=== PATIENT | female | born 1965 | race Caucasian/White ===

== ENCOUNTER 2016-09-11 09:32 | Emergency (ER) | payer MEDICAID ==
[~2016-09-11] VITALS: Ht 167.6 cm; Wt 54.4 kg
[~2016-09-11 09:32] MED LIST: BUPROPION HCL75 M1 PO; CENTRUM SILVER1 TAB PO; CLINDAMYCIN300 MG PO; HYDROCODONE1 TABLET PO; MELOXICAM15 MG PO; MOBIC7.5 MG PO; MULTI VITAMINS1 TA1 PO; NORCO 325 MG-51 TAB PO; TIZANIDINE HCL 44 MG NG; VICODIN 5/500 T1 TAB PO; VITAMIN D31000 IU PO; WELLBUTRIN 75MG75 MG PO
--- OUTSIDE RECORDS SUMMARY | 2016-09-11 09:47 | External Medical Summary Rpt ---
Author Author , Organization [employer] Address Unknown Phone Unavailable Care Team Providers Care Sweat Band Separator Name Role Phone MICHAEL SOLOMON MD, PSC, Unavailable Unavailable MICHAEL SOLOMON MD, PSC TRISTIN GOULD, BRYANNA, Unavailable Unavailable DARRIAN RUSSO Unavailable Unavailable AMANDA ALL, AMANDA ALL Unavailable Unavailable TYSON FLATLOCK SEWING MACHINE OPERATOR, TYSON Unavailable Unavailable FLATLOCK SEWING MACHINE OPERATOR DYLLAN MOCK, Unavailable Unavailable [facility]LLAN [facility], Unavailable [facility]available [facility] JIMY EMRE, Unavailable Unavailable JIMY EMRE JR STEPHEN RICARDO, Unavailable Unavailable JR STEPHEN RICARDO BRANDON, LYRIC Unavailable Unavailable [facility] Unavailable Unavailable INC, [facility], Unavailable Unavailable [facility] Unavailable Unavailable IMAGING ASS, [facility] Unavailable [facility]available [facility], Unavailable Unavailable PLLC, [facility] PETTEY JAM, PETTEY Unavailable Unavailable LISA NICOLAS, Unavailable Unavailable ZANDRA DUENAS JR Unavailable Unavailable [id number], Unavailable Unavailable [id number] Unavailable Unavailable EMERGENCY PH[facility], [facility], [facility] Unavailable Unavailable COM INC WEHRONDINA III IVETH, Unavailable Unavailable WEHRMAN III IVETH Purpose Continuity of Care Document - 06-20-2007 through 2016 Problems Code Diagnosis DOS Provider Status [id number] INSECT BITE 11-23-2015 [facility] NONVENOMOUS PLLC RT HAND INITIAL ENC M1711 UNILATERAL 03-28-[address] [facility] PRIMARY PHYSICIANS, [facility]STE[facility]ARTHRI PLLC TIS RIGHT KNEE F52385 EFFUSION 03-28-2015 [place] [facility] J14651 PAIN IN 03-28-2015 [place] [facility] M170 BILATERAL 02-18-2015 [facility] HOSP OSTEOARTHRI INC TIS OF KNEE 66929 OSTEOARTHRO 01-17-2015 RANJANA CURRY UNSPEC , PSC WHETHER GEN/LOC LOWER LEG 33414 UNSPECIFIED 01-17-2015 [facility]P ARTHROPATHY INC , LOWER LEG 54493 PAIN IN 12-16-2014 [place] LOWER LEG INC 6826 CELLULITIS 12-07-2014 [facility] AND ABSCESS PHYSICIANS, OF LEG PLL EXCEPT FOOT 8940 MX&UNSPEC 12-07-2014 [place] OPEN WOUND MEDICAL LOW LIMB IMAGING ASS W/O MENTION COMP 8799 OPEN WOUND 11-26-2014 [facility] [facility] UNSPECIFIED INC SITE COMPLICATED 9597 INJURY 11-19-2014 [facility] OTHER&UNSPE PHYSICIANS, CIFIED KNEE PLL LEG ANKLE&FOOT V7231 ROUTINE 11-04-2014 [facility] AL EXAMINATION V7641 SCREENING 11-04-2014 [facility] MALIGNANT GROUP NEOPLASM OF THE RECTUM 7295 PAIN IN 09-07-2014 [place] SOFT MEDICAL TISSUES OF IMAGING ASS LIMB V7612 OTHER 08-14-2014 [place] SCREENING MEDICAL MAMMOGRAM IMAGING ASS 94619 OVERWEIGHT 07-09-2014 [facility]OSP INC 4739 UNSPECIFIED 05-17-2014 [facility] SINUSITIS PHYSICIANS GROUP 21387 OLD 10-19-2013 [facility] DISRUPTION PHYSICIANS OF GROUP POSTERIOR CRUCIATE LIGAMENT 81467 CONTUSION 09-05-2013 [facility] OF KNEE PHYSICIANS GROUP 8449 SPRAIN&STRA 08-18-2013 [facility] N EMERGENCY UNSPECIFIED PHYSI SITE OF KNEE&LEG E8888 OTHER FALL 08-18-2013 [facility] PH[facility]SI E8889 UNSPECIFIED 08-18-2013 [place] FALL [facility]ICAL IM[facility] V251 ENCOUNTER 07-13-2007 W[facility]'S INSERT/[facility] IU CLINIC OF [place]PTI [place] VE DEVICE [facility] V2509 OTH GENERAL 06-20-2007 [facility] HE[facility] CNSL&ADVICE CLINIC OF CONTRACEPT [place] MANAGEMENT [facility] V2549 SURVEILLANC 06-20-2007 WOMEN'S E OTH PREV HEALTH PRSC CLINIC OF CONTRACEPT [place] METHOD [facility] Medications Na ND Rx Da Fi Fi Am Da Di Ph RX Ph St me C No te ll ll ou ys ag ar # ys at rm s nt no ma ic us Or Da si cy ia de te s n re d 00 03 04 00 12 2 RI 72 No Ac 40 -0 -0 .0 TE 26 t ti 60 3- 7- 00 54 Av ve 35 20 20 AI ai 90 08 08 D la 1 PH bl AR e M #3 93 8 NJ 50 02 04 00 1. 1 TH 20 No Ac RE 41 -2 -0 00 ER 27 t ti NA 90 9- 7- 0 A 85 Av ve 42 20 20 CO 9 ai SY 10 [address] 1 IN bl EM C e ME 59 02 03 00 1. 90 CL [address] 76 -1 -2 00 IN 51 t ti OX 24 9- 6- 0 IC 76 Av ve YP 53 20 20 ai RO 70 08 08 PH la GE [address] MA e ER CY ON E 15 0 MG /M L Procedures Procedure DOS Code Location Performer Comment RADIOLOGI 89520 [place] VASILIY ALL C 5 MEDICAL EXAMINATI IMAGING ON KNEE 3 ASS VIEWS INJECTION J1030 [facility] METHYLPRE INC INC DNISOLONE ACETATE 40 MG ARTHROCEN 80907 [facility] TESIS 5 [facility] ASPIR&/IN INC INC J MAJOR JT/BURSA W/O US FLUOR 09717 MICHAEL MICHAEL NEEDLE/CA 5 MD NEHA, MD NEHA, [facility] PSC SPINE/PAR ASPINAL DX/THER ADDON RADIOLOGI 74483 [place] AMANDA ALL C 5 MEDICAL EXAMINATI IMAGING ON TIBIA ASS & FIBULA 2 VIEWS SUSCEPTIB 30356 [facility] LTY STDY 5 [facility] ANTIMICRB INC INC IAL MICRO/AGA R DILUTJ CUL BACT 79415 [facility] XCPT 5 [facility] URINE INC INC BLOOD/STO OL AEROBIC ISOL CUL BACT 82771 [facility] AEROBIC 5 [facility] ADDL INC INC METHS DEFINITIV E EA ISOL CYTP C/V 92269 [facility] PICKLESIM AUTO THIN 5 LLC ER JR FIDENCIO LYR PREPJ SCR MNL RESCR PHYS BLOOD 21995 [facility] L[facility]IC OCCULT 5 PHYSICIAN BRANDON PEROXIDAS S GROUP E ACTV QUAL FECES 1-3 SPEC DUP-SCAN 07365 [place] JIMY XTR VEINS 5 MEDICAL EMRE IMAGING UNILATERA ASS L/LIMITED STUDY SCREENING G0202 [facility]OS[facility] MAMMOGRAP INC INC HY ALBER INCL CAD WHEN PERFORMD COMPUTER- 08650 [facility] AIDED [facility] DETECTION INC INC SCREENING MAMMOGRAP HY GENERAL 05183 [facility]OS[facility] PANEL INC INC SEDIMENTA 22962 [facility] DICKERSON TION RATE 5 [facility] RBC INC INC NON-AUTOM ATED HEMOGLOBI 44005 [facility] DICKERSON N 5 [facility] MEM HOSP GLYCOSYLA INC INC RAJAN A1C CYANOCOBA 76826 [facility] KAT 5 [facility] MEM HOS[facility] VITAMIN INC INC B-12 GONADOTRO 58249 [facility] PIN 5 [facility] [place] [address] [facility] DICKERSON MAGNESIUM 5 [facility] MEM HOSP INC INC GONADOTRO 89722 T[facility] PIN 5 MEM [facility]OSP FOLLICLE INC [place] [address] [facility] THYROXINE 5 [facility] MEM [facility]OS[facility] TOTAL INC INC RADIOLOGI 57011 [place] JIMY C EXAM 4 MEDICAL EMRE KNEE IMAGING COMPLETE ASS 4/MORE VIEWS URINE 31608 [facility], 8 [facility] TEST CLINIC OF VISUAL COLOR [place] CMPN [facility] METHS INSERTION [address] INTRAUTER CLINIC OF INE DEVICE [place] IUD [facility] URINE 23763 W[facility]'S MOCK, 8 [facility] TEST CLINIC OF VISUAL COLOR [place] [facility] METHS Encounters Encounter Start End Date Code Location Performer Type Date EMERGENCY 45756 YARITZA DE PAZ 6 6 PHYSICIAN KEVIN Palomo [facility] T VISIT MODERATE SEVERITY EMERGENCY 26452 YARITZA RICARDO 5 5 PHYSICIAN JR STEPHEN Palomo [facility] T VISIT MODERATE SEVERITY [facility] OUTPATIEN INC T OFFICE 38339 [facility] T VISIT INC 10 MINUTES [facility] OUTPATIEN INC [facility] OUTPATIEN INC OFFICE 57417 [facility] 5 5 [facility] T VISIT INC 10 MINUTES EMERGENCY 34035 YARITZA MEHTA 5 5 PHYSICIAN LEATHA GUAMAN S, [facility] T VISIT HIGH/URGE NT SEVERITY HOSPITAL [facility] - 5 5 [facility] OUTPATIEN INC EMERGENCY 19391 YARIT[facility] Venegas 5 5 PHYSICIAN DENIZ Palomo [facility] T VISIT MODERATE SEVERITY PERIODIC 88391 [facility] LYRIC PREVENTIV 5 5 PHYSICIAN BRANDON E MED EST S GROUP PATIENT 40-[address]YRS [facility] - 5 5 [facility] OUTPATIEN INC [facility] - 5 5 [facility] OUTPATIEN INC [facility] 5 [facility] OUTPATIEN INC OFFICE 45736 [facility] LYRIC OUTPATIEN 5 5 PHYSICIAN BRANDON T VISIT S GROUP 15 MINUTES OFFICE 59019 [facility] LYRIC OUTPATIEN 4 4 PHYSICIAN BRANDON T VISIT S GROUP 10 MINUTES OFFICE 12339 [facility] LYRIC OUTPATIEN 4 4 PHYSICIAN BRANDON T VISIT S GROUP 10 MINUTES OFFICE 24229 [facility] PETTEY OUTPATIEN 4 4 PHYSICIAN JAM T VISIT S GROUP 15 MINUTES OFFICE 69948 [facility] LYRIC OUTPATIEN 4 4 PHYSICIAN BRANDON T VISIT S GROUP 10 MINUTES OFFICE 00415 [facility] PETTEY OUTPATIEN 4 4 PHYSICIAN JAM T VISIT S GROUP 15 MINUTES OFFICE 29967 [facility] PETTEY OUTPATIEN 4 4 PHYSICIAN JAM T VISIT S GROUP 25 MINUTES OFFICE 94833 [facility] LYRIC QUINTERO 4 4 PHYSICIAN BRANDON T NEW 20 S GROUP MINUTES EMERGENCY 35997 [facility] 4 4 DOMINIQUE III [facility] EMERGENCY T VISIT PHYSI MODERATE SEVERITY OFFICE 15862 WOMEN'S INGRID MOCK 8 8 [facility] T VISIT CLINIC OF 15 MINUTES [facility]
--- OUTSIDE RECORDS SUMMARY | 2016-09-11 09:47 | External Medical Summary Rpt ---
Author Author , Organization [employer] Address Unknown Phone Unavailable Care Team Providers Care Scarfing Machine Operator Name Role Phone MICHAEL SOLOMON MD, PSC, Unavailable Unavailable MICHAEL SOLOMON MD, PSC TRISTIN GOULD, BRYANNA, Unavailable Unavailable DARRIAN RUSSO Unavailable Unavailable AMANDA ALL, AMANDA ALL Unavailable Unavailable TYSON JOB SETTER, TYSON Unavailable Unavailable JOB SETTER DYLLAN MOCK, Unavailable Unavailable [facility], Unavailable [facility]available [facility] JIMY EMRE, Unavailable Unavailable JIMY EMRE JR STEPHEN RICARDO, Unavailable Unavailable JR STEPHEN RICARDO BRANDON, LYRIC Unavailable Unavailable [facility] Unavailable Unavailable INC, [facility] Unavailable Unavailable [facility] Unavailable Unavailable IMAGING ASS, [facility] Unavailable [facility]available [facility], Unavailable Unavailable PLLC, [facility] PETTEY JAM, PETTEY Unavailable Unavailable LISA NICOLAS, Unavailable Unavailable ZANDRA DUENAS JR Unavailable Unavailable [id number], Unavailable Unavailable [id number] Unavailable Unavailable EMER[facility]Y [facility], [facility], [facility]ERA Unavailable Unavailable COM INC WEHRONDINA III IVETH, Unavailable Unavailable WEHRMAN III IVETH Purpose Continuity of Care Document - 06-20-2007 through 2016 Problems Code Diagnosis DOS Provider Status [id number] INSECT BITE 11-23-2015 [facility], NONVENOMOUS PLLC RT HAND INITIAL ENC M1711 UNILATERAL 03-28-2015 [facility] PRIMARY PHYSICIANS, [facility] PLLC TIS RIGHT KNEE F87232 EFFUSION 03-28-2015 [place] [facility] C47948 PAIN IN 03-28-2015 [place] RIGHT [facility] M170 BILATERAL 02-18-2015 [facility] OSTEOARTHRI INC TIS OF KNEE 60428 OSTEOARTHRO 01-17-2015 RANJANA CURRY UNSPEC , PSC WHETHER GEN/LOC LOWER LEG 83104 UNSPECIFIED 01-17-2015 [facility] HOSP ARTHROPATHY INC , LOWER LEG 05005 PAIN IN 12-16-2014 [place] LOWER LEG INC 6826 CELLULITIS 12-07-2014 [facility] AND ABSCESS PHYSICIANS, OF LEG PLL EXCEPT FOOT 8940 MX&UNSPEC 12-07-2014 [place] OPEN WOUND MEDICAL LOW LIMB IMAGING ASS W/O MENTION COMP 8799 OPEN WOUND 11-26-2014 [place] [facility] UNSPECIFIED INC SITE COMPLICATED 9597 INJURY 11-19-2014 [facility] OTHER&UNSPE PHYSICIANS, CIFIED KNEE PLL LEG ANKLE&FOOT V7231 ROUTINE 11-04-2014 [facility] AL EXAMINATION V7641 SCREENING 11-04-2014 [facility] FOR [facility]ANS MALIGNANT GROUP NEOPLASM OF THE RECTUM 7295 PAIN IN 09-07-2014 [place] SOFT MEDICAL TISSUES OF IMAGING ASS LIMB V7612 OTHER 08-14-2014 [place] SCREENING MEDICAL MAMMOGRAM IMAGING ASS 57945 OVERWEIGHT 07-09-2014 [facility] HOSP INC 4739 UNSPECIFIED 05-17-2014 [facility] SINUSITIS PHYSICIANS GROUP 54863 OLD 10-19-2013 [facility] DISRUPTION PHYSICIANS OF GROUP POSTERIOR CRUCIATE LIGAMENT 05433 CONTUSION 09-05-2013 [facility] OF KNEE PHYSICIANS GROUP 8449 SPRAIN&STRA 08-18-2013 [facility] OF N EMERGENCY UNSPECIFIED PHYSI SITE OF KNEE&LEG E8888 OTHER FALL 08-18-2013 [facility] EM[facility]GENC[facility] PHYSI E8889 UNSPECIFIED 08-18-2013 [place] [facility] V251 ENCOUNTER 07-13-2007 WOMEN'S INSERT/[facility] IU CLIN[facility] OF [facility]PTI [place] VE DEVICE [facility] V2509 OTH GENERAL 06-20-2007 WOMEN'S HE[facility] CNSL&ADVICE CLINIC OF CONTRACEPT [place] MANAGEMENT [facility] V2549 SURVEILLANC 06-20-2007 WOMEN'S E OTH PREV HEALTH PRSC CLINIC OF CONTRACEPT [place] METHOD [facility] Medications Na ND Rx Da Fi Fi [...] bl AR e M #3 93 8 AR 50 02 04 00 1. 1 TH [...] Procedure DOS Code Location Performer Comment RADIOLOGI 26488 [place] VASILIY ALL C 5 MEDICAL EXAMINATI IMAGING ON KNEE 3 ASS VIEWS INJECTION J1030 [facility] METHYLPRE INC INC DNISOLONE ACETATE 40 MG ARTHROCEN 49330 [facility] TESIS 5 [facility] ASPIR&/IN INC INC J MAJOR JT/BURSA W/O US FLUOR 54270 MICHAEL MICHAEL NEEDLE/CA 5 MD NEHA, MD NEHA, [facility] PSC SPINE/PAR ASPINAL DX/THER ADDON RADIOLOGI 98332 [place] AAMNDA ALL C 5 MEDICAL EXAMINATI IMAGING ON TIBIA ASS & FIBULA 2 VIEWS SUSCEPTIB 39993 [facility] LTY STDY 5 [facility] ANTIMICRB INC INC IAL MICRO/AGA R DILUTJ CUL BACT 87637 [facility] XCPT 5 [facility] URINE INC INC BLOOD/STO OL AEROBIC ISOL CUL BACT 62288 [facility] AEROBIC 5 [facility] ADDL INC INC METHS DEFINITIV E EA ISOL CYTP C/V 79098 [facility] PICKLES[facility] AUTO THIN 5 LLC ER JR FIDENCIO LYR PREPJ SCR MNL RESCR PHYS BLOOD 91113 [facility] LYRIC OCCULT 5 PHYSICIAN BRANDON PEROXIDAS S GROUP E ACTV QUAL FECES 1-3 SPEC DUP-SCAN 25570 [place] JIMY XTR VEINS 5 MEDICAL EMRE IMAGING UNILATERA ASS L/LIMITED STUDY SCREENING G0202 [facility] MAMMOGRAP INC INC HY ALBER INCL CAD WHEN PERFORMD COMPUTER- 30974 [facility] AIDED [facility] DETECTION INC INC SCREENING MAMMOGRAP HY GENERAL 54707 [facility] PANEL INC INC SEDIMENTA 08531 [facility] D[facility] TION RATE 5 [facility] RBC INC INC NON-AUTOM ATED HEMOGLOBI 05408 [facility] N 5 [facility]OS[facility] GLYCOSYLA INC INC RAJAN A1C CYANOCOBA 67711 [facility] KAT 5 [facility] VITAMIN INC INC B-12 GONADOTRO 36254 [facility] PIN 5 [facility] [place] [address] TUANPAULA DICKERSON MAGNESIUM 5 [facility] HOS[facility] INC INC GONADOTRO 35206 [facility] PIN 5 MEM [facility] FOLLICLE [place] [address] [facility] THYROXINE 5 [facility] MEM HOSP TOTAL INC INC RADIOLOGI 47575 [place] JIM[facility] C EXAM 4 MEDICAL EMRE KNEE IMAGING COMPLETE ASS 4/MORE VIEWS URINE 10930 [facility], 8 [facility] TEST CLINIC OF VISUAL COLOR [place] CMPN [facility] METHS INSERTION [address] INTRAUTER CLINIC OF INE DEVICE [place] IUD [facility] URINE 58191 WOMEN'S MOCK, 8 [facility] TEST CLINIC OF VISUAL COLOR [place] [facility] METHS Encounters Encounter Start End Date Code Location Performer Type Date EMERGENCY 80737 YARITZA DE PAZ 6 6 PHYSICIAN KEVIN Palomo [facility] T VISIT MODERATE SEVERITY EMERGENCY 62150 YARITZA RICARDO 5 5 PHYSICIAN JR STEPHEN Palomo [facility] T VISIT MODERATE SEVERITY [facility] OUTPATIEN INC T OFFICE 91130 [facility] T VISIT INC 10 MINUTES [facility] - 5 5 [facility] OUTPATIEN INC [facility] - 5 5 [facility] OUTPATIEN INC OFFICE 55758 [facility] 5 5 [facility] T VISIT INC 10 MINUTES EMERGENCY 23300 YARITZA MEHTA 5 5 PHYSICIAN LEATHA GUAMAN S, [facility] T VISIT HIGH/URGE NT SEVERITY [facility]OSPITAL [facility] - 5 5 [facility] OUTPATIEN INC EMERGENCY 61655 YARITZA Venegas 5 5 PHYSICIAN DENIZ Pal[facility] T VISIT MODERATE SEVERITY PERIODIC 56818 [facility] LYRIC PREVENTIV 5 5 PHYSICIAN BRANDON E MED EST S GROUP PATIENT 40-64YRS [facility] - 5 5 [facility] OUTPATIEN INC [facility] - 5 5 [facility] OUTPATIEN INC [facility] - 5 5 [facility] OUTPATIEN INC OFFICE 64628 [facility] LYRIC OUTPATIEN 5 5 PHYSICIAN BRANDON T VISIT S GROUP 15 MINUTES OFFICE 08034 [facility] LYRIC OUTPATIEN 4 4 PHYSICIAN BRANDON T VISIT S GROUP 10 MINUTES OFFICE 23098 [facility] LYRIC OUTPATIEN 4 4 PHYSICIAN BRANDON T VISIT S GROUP 10 MINUTES OFFICE 47001 [facility] PETTEY OUTPATIEN 4 4 PHYSICIAN JAM T VISIT S GROUP 15 MINUTES OFFICE 52007 [facility] LYRIC OUTPATIEN 4 4 PHYSICIAN BRANDON T VISIT S GROUP 10 MINUTES OFFICE 43787 [facility] PETTEY OUTPATIEN 4 4 PHYSICIAN JAM T VISIT S GROUP 15 MINUTES OFFICE 62336 [facility] PETTEY OUTPATIEN 4 4 PHYSICIAN JAM T VISIT S GROUP 25 MINUTES OFFICE 05862 [facility] LYRIC QUINTERO 4 4 PHYSICIAN BRANDON T NEW 20 S GROUP MINUTES EMERGENCY 30516 [facility] 4 4 DOMINIQUE III [place] EMERGENCY DEPARTMENT EMERGENCY T VISIT PHYSI MODERATE SEVERITY OFFICE 49679 [facility]EN'S INGRID MOCK 8 8 [facility] T VISIT CLINIC OF 15 MINUTES [facility]
--- OUTSIDE RECORDS SUMMARY | 2016-09-11 09:48 | External Medical Summary Rpt ---
Author Author JACQUI Meza, [employer] Organization [employer] Address Unknown Phone Unavailable
--- OUTSIDE RECORDS SUMMARY | 2016-09-11 09:48 | External Medical Summary Rpt ---
Demographics Preferred Language Turkmen Marital Status Unknown Episcopal Affiliation Unknown Race Unknown Ethnic Group Unknown Author Author , Organization [employer] Address Unknown Phone Unavailable Purpose Continuity of Care Document - through 2016 Immunization No patient found.
--- OUTSIDE RECORDS SUMMARY | 2016-09-11 09:48 | External Medical Summary Rpt ---
Author Author , Organization [employer] Address Unknown Phone Unavailable Care Team Providers Care Bariatric Surgeon Name Role Phone MICHAEL SOLOMON MD, PSC, Unavailable Unavailable MICHAEL SOLOMON MD, PSC JEREMÍAS IBARRA, JEREMÍAS Unavailable Unavailable TRISTIN DELONG, BRYANNA, Unavailable Unavailable DARRIAN RUSSO Unavailable Unavailable AMANDA ALL, AMANDA ALL Unavailable Unavailable TYSON WEB APPLICATION DEVELOPER, TYSON Unavailable Unavailable WEB APPLICATION DEVELOPER DYLLAN MOCK, Unavailable Unavailable [facility]LLAN [facility], Unavailable [facility]available [facility] JIMY EMRE, Unavailable Unavailable JIMY EMRE JR STEPHEN RICARDO, Unavailable Unavailable JR STEPHEN RICARDO BRANDON, LYRIC Unavailable Unavailable BRANDON [facility] Unavailable Unavailable INC, [facility], Unavailable Unavailable [facility] Unavailable Unavailable IMAGING [facility], [facility] Unavailable [facility]available [facility], Unavailable Unavailable PLLC, [facility] PETTEY JAM, PETTEY Unavailable Unavailable LISA NICOLAS, Unavailable Unavailable TAMANNA NICOLAS RENUSCH KEVIN, RENUSCH Unavailable Unavailable KEVIN [id number], Unavailable Unavailable [id number] Unavailable Unavailable EM[facility]Y [facility], [facility], [facility] Unavailable Unavailable [facility] WEHRMAN III IVETH, Unavailable Unavailable WEHRMAN III IVETH Purpose Continuity of Care Document - 06-20-2007 through 2016 Problems Code Diagnosis DOS Provider Status [id number] INSECT BITE 11-23-2015 [facility], NONVENOMOUS PLLC RT HAND INITIAL ENC M1711 UNILATERAL 03-28-2015 [facility] PRIMARY [facility], OSTEOARTHRI PLLC TIS RIGHT KNEE [id number] EFFUSION 03-28-2015 [place] [place] [facility] X60603 PAIN IN 03-28-2015 [place] RIGHT [facility] M170 BILATERAL 02-18-2015 [facility] OSTEOARTHRI INC TIS OF KNEE 99612 OSTEOARTHRO 01-17-2015 RANJANA CURRY MD, PSC WHETHER GEN/LOC LOWER LEG 61881 UNSPECIFIED 01-17-2015 [facility] ARTHROPATHY INC , LOWER LEG 72416 PAIN IN 12-16-2014 [facility], [facility] LOWER LEG INC 6826 CELLULITIS 12-07-2014 [facility] AND ABSCESS PHYSICIANS, OF LEG PLLC EXCEPT FOOT 8940 MX&UNSPEC 12-07-2014 [place] OPEN WOUND MEDICAL LOW LIMB IMAGING ASS W/O MENTION COMP 8799 OPEN WOUND 11-26-2014 [facility] UNSPECIFIED INC SITE COMPLICATED 9597 INJURY 11-19-2014 [facility] OTHER&UNSPE PHYSICIANS, CIFIED KNEE PLLC LEG ANKLE&FOOT V7231 ROUTINE 11-04-2014 [facility] AL EXAMINATION V7641 SCREENING 11-04-2014 [facility] MALIGNANT GROUP NEOPLASM OF THE RECTUM 7295 PAIN IN 09-07-2014 [place] SOFT MEDICAL TISSUES OF IMAGING ASS LIMB V7612 OTHER 08-14-2014 [place] SCREENING MEDICAL MAMMOGRAM IMAGING ASS 29002 OVERWEIGHT 07-09-2014 [facility] INC 4739 UNSPECIFIED 05-17-2014 [facility] SINUSITIS PHYSICIANS GROUP 42317 OLD 10-19-2013 [facility] DISRUPTION PHYSICIANS OF GROUP POSTERIOR CRUCIATE LIGAMENT 88266 CONTUSION 09-05-2013 [facility] OF KNEE PHYSICIANS GROUP 8449 SPRAIN&STRA 08-18-2013 [facility] UNSPECIFIED PHYSI SITE OF KNEE&LEG E8888 OTHER FALL 08-18-2013 [facility] E8889 UNSPECIFIED 08-18-2013 [facility] [place] FALL [facility] V251 ENCOUNTER 07-13-2007 [facility] IU [facility] [place] VE DEVICE [facility] V2509 OTH GENERAL 06-20-2007 [facility] CNSL&ADVICE [facility]INIC OF CONTRACEPT [place] MANAGEMENT [facility] V2549 SURVEILLANC 06-20-2007 WOMEN'S E OTH PREV HEALTH PRSC CLINIC OF CONTRACEPT [place] METHOD [facility] Medications Na ND Rx Da Fi Fi [...] bl AR e M #3 93 8 GA 50 02 04 00 1. 1 TH [...] Procedure DOS Code Location Performer Comment RADIOLOGI 55761 [place] VASILIY ALL C 5 MEDICAL EXAMINATI IMAGING ON KNEE 3 ASS VIEWS INJECTION J1030 [facility] METHYLPRE INC INC DNISOLONE ACETATE 40 MG FLUOR 17920 MICHAEL MICHAEL NEEDLE/CA 5 MD NEHA, MD NEHA, PSC PSC SPINE/PAR ASPINAL DX/THER ADDON ARTHROCEN 43192 [facility] TESIS 5 [facility] ASPIR&/IN INC INC J MAJOR JT/BURSA W/O US RADIOLOGI 82758 [place] VASIL[facility]Y ALL C 5 MEDICAL EXAMINATI IMAGING ON TIBIA ASS & FIBULA 2 VIEWS SUSCEPTIB 35132 [facility] LTY STDY 5 [facility] ANTIMICRB INC INC IAL MICRO/AGA R DILUTJ CUL BACT 55561 [facility] XCPT 5 [facility] URINE INC INC BLOOD/STO OL AEROBIC ISOL CUL BACT 34047 [facility] AEROBIC 5 [facility] ADDL INC INC METHS DEFINITIV E EA ISOL CYTP C/V 59476 [facility] PICKLESIM AUTO THIN 5 LLC ER JR FIDENCIO LYR PREPJ SCR MNL RESCR PHYS BLOOD 38752 [facility] LYRIC OCCULT 5 PHYSICIAN BRANDON PEROXIDAS S GROUP E ACTV QUAL FECES 1-3 SPEC DUP-SCAN 65994 [place] JIMY XTR VEINS 5 MEDICAL EMRE IMAGING UNILATERA ASS L/LIMITED STUDY [facility]- [address] [place] JEREMÍAS AIDED 5 MEDICAL FERD DETECTION IMAGING ASS SCREENING MAMMOGRAP HY SCREENING G0202 [place] JOSE 5 MEDICAL FRED MAMMOGRAP IMAGING HY ALBER ASS INCL CAD WHEN PERFORMD GENERAL 41849 [facility] PANEL INC INC GONADOTRO 10619 [facility] PIN 5 [facility] FOLLICLE INC INC STIMULATI NG HORMONE SEDIMENTA 53584 [facility] TION RATE 5 [facility] RBC INC INC NON-AUTOM ATED HEMOGLOBI 50757 [facility] N 5 [facility] GLYCOSYLA INC INC RAJAN A1C CYANOCOBA 29464 [facility] KAT 5 [facility] VITAMIN INC INC B-12 GONADOTRO 77952 [facility] PIN 5 [facility] [place] [address] [facility] MAGNESIUM 5 [place] [address] [facility] THYROXINE 5 [facility] TOTAL INC INC RADIOLOGI 80034 [place] JIMY C EXAM 4 MEDICAL EMRE KNEE IMAGING COMPLETE ASS 4/MORE VIEWS INSERTION 55975 [facility], [address] [place] [address] INTRAUTER [facility]IN[facility] OF INE DEVICE [place] IUD PLL URINE 62717 [facility], [address] [place] [address] TEST CLIN[facility] OF VISUAL COLOR [place] CMPRSN PLLC METHS URINE 71272 [facility] TEST CLINIC OF VISUAL COLOR [place] CMPRSN PLLC METHS Encounters Encounter Start End Date Code Location Performer Type Date EMERGENCY 85059 [facility] DE PAZ 6 6 PHYSICIAN JINA MARTÍNEZC T VISIT MODERATE SEVERITY EMERGENCY 05170 [facility] RICARDO 5 5 PHYSICIAN JINA ROBERTSC T VISIT MODERATE SEVERITY [facility] OUTPATIEN INC T OFFICE 02924 [facility] T VISIT INC 10 MINUTES [facility] OUTPATIEN INC T OFFICE 01831 [facility] T VISIT INC 10 MINUTES [facility] OUTPATIEN INC T EMERGENCY 49722 [facility] MEHTA 5 5 PHYSICIAN LEATHA GUAMAN S, [facility] T VISIT HIGH/URGE NT SEVERITY [facility]OSP[facility] OUTPATIEN INC T EMERGENCY 65879 [facility] Venegas 5 5 PHYSICIAN DENIZ Palomo [facility] T VISIT MODERATE SEVERITY PERIODIC 68827 [facility] LYRIC PREVENTIV 5 5 PHYSICIAN BRANDON E MED EST S GROUP PATIENT 40-64YRS [facility] OUTPATIEN INC T [facility] OUTPATIEN INC T [facility] OUTPATIEN INC T OFFICE 47781 [facility] LYRIC OUTPATIEN 5 5 PHYSICIAN BRANDON T VISIT S GROUP 15 MINUTES OFFICE 68935 [facility] LYRIC OUTPATIEN 4 4 PHYSICIAN BRANDON T VISIT S GROUP 10 MINUTES OFFICE 46790 [facility] LYRIC OUTPATIEN 4 4 PHYSICIAN BRANDON T VISIT S GROUP 10 MINUTES OFFICE 55383 H PETTEY OUTPATIEN 4 4 PHYSICIAN JAM T VISIT S GROUP 15 MINUTES OFFICE 33359 [facility] LYRIC OUTPATIEN 4 4 PHYSICIAN BRANDON T VISIT S GROUP 10 MINUTES OFFICE 95792 [facility] PETTEY OUTPATIEN 4 4 PHYSICIAN JAM T VISIT S GROUP 15 MINUTES OFFICE 34075 [facility] PETTEY OUTPATIEN 4 4 PHYSICIAN LISA Ames VISIT S GROUP 25 MINUTES OFFICE 87976 [facility] LYRIC OUTPATIEN 4 4 PHYSICIAN BRANDON Ames NEW 20 S GROUP MINUTES EMERGENCY 34274 [facility] 4 4 DOMINIQUE III [facility] EMERGENCY T VISIT PHYSI MODERATE SEVERITY OFFICE 91178 [facility]ES [facility]
--- OUTSIDE RECORDS SUMMARY | 2016-09-11 09:48 | External Medical Summary Rpt ---
Author Author , Organization [employer] Address Unknown Phone Unavailable Care Team Providers Care Aoc Director Combat Operations Officer Name Role Phone MICHAEL SOLOMON MD, PSC, Unavailable Unavailable MICHAEL SOLOMON MD, PSC JEREMÍAS IBARRA, JEREMÍAS Unavailable Unavailable TRISTIN DELONG, BRYANNA, Unavailable Unavailable DARRIAN RUSSO Unavailable Unavailable AMANDA ALL, AMANDA ALL Unavailable Unavailable TYSON MANAGER COUNCIL, TYSON Unavailable Unavailable MANAGER COUNCIL DYLLAN MOCK, Unavailable Unavailable [facility], Unavailable Unavailable [facility] JIMY EMRE, Unavailable Unavailable JIMY EMRE JR STEPHEN RICARDO, Unavailable Unavailable JR STEPHEN RICARDO BRANDON, LYRIC Unavailable Unavailable BRANDON [facility] Unavailable Unavailable INC, [facility], Unavailable Unavailable [facility] Unavailable Unavailable IMAGING ASS, [facility] Unavailable Unavailable [facility], Unavailable Unavailable PLLC, [facility] PETTEY JAM, PETTEY Unavailable Unavailable LISA NICOLAS, Unavailable Unavailable TAMANNA NICOLAS RENUSCH KEVIN, RENUSCH Unavailable Unavailable KEVIN [id number], Unavailable Unavailable [id number] Unavailable Unavailable EMERGENCY PHYSI, [facility], [facility]A Unavailable Unavailable COM INC WEHRMAN III IVETH, Unavailable Unavailable WEHRMAN III IVETH Purpose Continuity of Care Document - 06-20-2007 through 2016 Problems Code Diagnosis DOS Provider Status [id number] INSECT BITE 11-23-2015 [facility], NONVENOMOUS PLLC RT HAND INITIAL ENC M1711 UNILATERAL 03-28-2015 [facility], OSTEOARTHRI PLLC TIS RIGHT KNEE A81990 EFFUSION 03-28-2015 [place] [facility] K94390 PAIN IN 03-28-2015 [place] RIGHT [facility]ICAL IM[facility]ING ASS M170 BILATERAL 02-18-2015 [facility] OSTEOARTHRI INC TIS OF KNEE 76341 OSTEOARTHRO 01-17-2015 RANJANA CURRY MD, PSC WHETHER GEN/LOC LOWER LEG 76433 UNSPECIFIED 01-17-2015 [facility] ARTHROPATHY INC , LOWER LEG 39584 PAIN IN 12-16-2014 [place], [facility] LOWER LEG INC 6826 CELLULITIS 12-07-2014 [facility] AND ABSCESS PHYSICIANS, OF LEG PLLC EXCEPT FOOT 8940 MX&UNSPEC 12-07-2014 [place] OPEN WOUND MEDICAL LOW LIMB IMAGING ASS W/O MENTION COMP 8799 OPEN WOUND 11-26-2014 [facility] UNSPECIFIED INC SITE COMPLICATED 9597 INJURY 11-19-2014 [facility] OTHER&UNSPE PHYSICIANS, CIFIED KNEE PLLC LEG ANKLE&FOOT V7231 ROUTINE 11-04-2014 [facility] AL EXAMINATION V7641 SCREENING 11-04-2014 [facility] MALIGNANT GROUP NEOPLASM OF THE RECTUM 7295 PAIN IN 09-07-2014 [place] SOFT MEDICAL TISSUES OF IMAGING ASS LIMB V7612 OTHER 08-14-2014 [place] SCREENING MEDICAL MAMMOGRAM IMAGING ASS 35914 OVERWEIGHT 07-09-2014 [facility] INC 4739 UNSPECIFIED 05-17-2014 [facility] SINUSITIS PHYSICIANS GROUP 55523 OLD 10-19-2013 [facility] DISRUPTION PHYSICIANS OF GROUP POSTERIOR CRUCIATE LIGAMENT 96285 CONTUSION 09-05-2013 [facility] OF KNEE PHYSICIANS GROUP 8449 SPRAIN&STRA 08-18-2013 [facility]GENCY UNSPECIFIED PHYSI SITE OF KNEE&LEG E8888 OTHER FALL 08-18-2013 [facility] PHYSI E8889 UNSPECIFIED 08-18-2013 [place] FALL [facility]ICAL [facility] ASS V251 ENCOUNTER 07-13-2007 [facility] [place] VE DEVICE [facility] V2509 OTH GENERAL 06-20-2007 [facility] CNSL&ADVICE [facility]PT [place] MANAGEMENT [facility] V2549 SURVEILLANC 06-20-2007 WOMEN'S E OTH PREV HEALTH PRSC CLINIC OF CONTRACEPT [place] METHOD [facility] Medications Na ND Rx Da Fi Fi [...] bl AR e M #3 93 8 RI 50 02 04 00 1. 1 TH [...] Procedure DOS Code Location Performer Comment RADIOLOGI 17577 [place] VASILI[facility] ALL C 5 MEDICAL EXAMINATI IMAGING ON KNEE 3 ASS VIEWS INJECTION J1030 [facility] METHYLPRE INC INC DNISOLONE ACETATE 40 MG FLUOR 03394 MICHAEL MICHAEL NEEDLE/CA 5 MD NEHA, MD NEHA, PSC PSC SPINE/PAR ASPINAL DX/THER ADDON ARTHROCEN 04346 [facility] TESIS 5 [facility] ASPIR&/IN INC INC J MAJOR JT/BURSA W/O US RADIOLOGI 08895 [place] [facility]AS[facility] ALL C 5 MEDICAL EXAMINATI IMAGING ON TIBIA ASS & FIBULA 2 VIEWS SUSCEPTIB 35904 [facility] LTY STDY 5 [facility] ANTIMICRB INC INC IAL MICRO/AGA R DILUTJ CUL BACT 49122 [facility] XCPT 5 [facility] URINE INC INC BLOOD/STO OL AEROBIC ISOL CUL BACT 51652 [facility] AEROBIC 5 [facility] ADDL INC INC METHS DEFINITIV E EA ISOL CYTP C/V 35680 [facility] PICKLESIM AUTO THIN 5 LLC ER JR FIDENCIO LYR PREPJ SCR MNL RESCR PHYS BLOOD 70591 [facility] LYRIC OCCULT 5 PHYSICIAN BRANDON PEROXIDAS S GROUP E ACTV QUAL FECES 1-3 SPEC DUP-SCAN 50945 [place] JIM[facility] XTR VEINS 5 MEDICAL EMRE IMAGING UNILATERA ASS L/LIMITED STUDY [facility]- 19421 [place] JEREMÍAS AIDED 5 MEDICAL FRED DETECTION IMAGING ASS SCREENING MAMMOGRAP HY SCREENING G0202 [place] JOSE 5 MEDICAL FRED MAMMOGRAP IMAGING HY ALBER ASS INCL CAD WHEN PERFORMD GENERAL 59120 [facility] PANEL INC INC GONADOTRO 96745 [facility] PIN 5 [facility] FOLLICLE INC INC STIMULATI NG HORMONE SEDIMENTA 63005 [facility] TION RATE 5 [facility] RBC INC INC NON-AUTOM ATED HEMOGLOBI 98096 [facility] N 5 [facility] GLYCOSYLA INC INC RAJAN A1C CYANOCOBA 26784 [facility] KAT 5 [facility] VITAMIN INC INC B-12 GONADOTRO 84016 [facility] D[facility] PIN 5 [facility] [place] [address] [facility] D[facility] MAGNESIUM 5 [place] [address] [facility] THYROXINE 5 [facility] TOTAL INC INC RADIOLOGI 68509 [place] JIMY C EXAM 4 MEDICAL EMRE KNEE IMAGING COMPLETE ASS 4/MORE VIEWS INSERTION 45056 [facility] [address] [place] [address] [facility] DEVICE [place] I[facility] PLL URINE 30080 [facility], [address] [place] [address] TEST CLIN[facility] OF VISUAL COLOR [place] CMPRSN PLLC METHS URINE 14403 [facility], 8 [facility] TEST CLINIC OF VISUAL COLOR [place] CMPRSN PLLC METHS Encounters Encounter Start End Date Code Location Performer Type Date EMERGENCY 60410 [facility] DE PAZ 6 6 PHYSICIAN JINA MARTÍNEZC T VISIT MODERATE SEVERITY EMERGENCY 54183 [facility] RICARDO 5 5 PHYSICIAN JINA ROBERTSC T VISIT MODERATE SEVERITY [facility] OUTPATIEN INC T OFFICE 82085 [facility] 5 [facility] T VISIT INC 10 MINUTES [facility] 5 5 [facility] OUTPATIEN INC T OFFICE 86545 [facility] 5 [facility] T VISIT INC 10 MINUTES [facility] 5 [facility] OUTPATIEN INC T EMERGENCY 19229 [facility] MEHTA 5 5 PHYSICIAN LEATHA GUAMAN S, [facility] T VISIT HIGH/URGE NT SEVERITY [facility] - 5 5 [facility] OUTPATIEN INC T EMERGENCY 59496 [facility] Venegas [address] [facility] T VISIT MODERATE SEVERITY PERIODIC 77355 [facility] LYRIC PREVENTIV 5 5 PHYSICIAN BRANDON E MED EST S GROUP PATIENT 40-64YRS [facility] 5 5 [facility] OUTPATIEN INC T [facility] - 5 5 [facility] OUTPATIEN INC T [facility] 5 5 [facility] OUTPATIEN INC T OFFICE 17201 [facility] LYRIC OUTPATIEN 5 5 PHYSICIAN BRANDON T VISIT S GROUP 15 MINUTES OFFICE 70432 [facility] LYRIC OUTPATIEN 4 4 PHYSICIAN BRANDON T VISIT S GROUP 10 MINUTES OFFICE 70386 [facility] LYRIC OUTPATIEN 4 4 PHYSICIAN BRANDON T VISIT S GROUP 10 MINUTES OFFICE 66022 H PET[facility] OUTPATIEN 4 4 PHYSICIAN JAM T VISIT S GROUP 15 MINUTES OFFICE 11225 [facility] LYRIC OUTPATIEN 4 4 PHYSICIAN BRANDON T VISIT S GROUP 10 MINUTES OFFICE 92675 [facility] PETTEY OUTPATIEN 4 4 PHYSICIAN JAM T VISIT S GROUP 15 MINUTES OFFICE 33023 [facility] PETTEY OUTPATIEN 4 4 PHYSICIAN LISA Ames VISIT S GROUP 25 MINUTES OFFICE 46466 [facility] LYRIC OUTPATIEN 4 4 PHYSICIAN BRANDON Ames NEW 20 S GROUP MINUTES EMERGENCY 30805 [facility] 4 4 DOMINIQUE III [facility] EMERGENCY T VISIT PHYSI MODERATE SEVERITY OFFICE 94577 [facility] [address] [facility]
--- OUTSIDE RECORDS SUMMARY | 2016-09-11 09:48 | External Medical Summary Rpt ---
Demographics Preferred Language Indian Marital Status Unknown Worship Affiliation Unknown Race Unknown Ethnic Group Unknown Author Author , Organization [employer] Address Unknown Phone Unavailable Purpose Continuity of Care Document - through 2016 Immunization No patient found.
--- NOTE | 2016-09-11 10:03 | Urgent Treatment Center Report ---
See Addendum History of Present Issue Visit Reason Pt arrived:Walked Presenting Problem:PT REPORTS L EAR PAIN AND FEVER THAT BEGAN YESTERDAY PT ALSO REPORTS COLD CHILLS, SHAKES, HEADACHE AND SINUS PRESSURE. 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 N If Yes, where/when: Have you had exposure to infectious disease within the past month? TB? Other? Specify: Source patient, RN notes reviewed Exam Limitations no limitations (COURTNEY DE LA CRUZ, YARELI Leos) Date/Time Seen by Provider 09/11/16 0956 Visit Reason Pt arrived:Walked Presenting Problem:PT REPORTS L EAR PAIN AND FEVER THAT BEGAN YESTERDAY PT ALSO REPORTS COLD CHILLS, SHAKES, HEADACHE AND SINUS PRESSURE. 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 N If Yes, where/when: Have you had exposure to infectious disease within the past month? TB? Other? Specify: Source patient, RN notes reviewed Exam Limitations no limitations Comment Pt comes to the ED with severe pain in her left ear and behind it since last night. No history of injury but having some fever and chills. Initially sent to [facility] but started crying and complaining of severe pain there and sent to the ED for evaluation ALLERGIES Coded Allergies: No Known Allergies (11/23/15) Home Medications Reported Medications BUPROPION HCL (Bupropion HCl 75MG) 75 MG PO DAILY #30 (Rehana VALDERRAMA,Marco) History Medical History General CAD? No Angina: No [place]: No Hypertension? No Hyperlipidemia? No CHF? No DVT? No PE? No COPD? No Asthma? No Anemia? No GERD? No Gastric ulcers? No GI Bleed? No Hernia? No Thyroid Problems? No Hypothyroidism? No CVA? No Seizures? No Diabetes? No Insulin Dependent: No Insulin Pump: No Home FSBS? No Renal Insuffiency? No UTI? No Stones? No BPH? No GB Disease: No Nephritic Syndrome? No Asplenia? No Hepatitis? No Sickle Cell Disease? No Arthritis? Yes Migraines? No Cataracts? No Glaucoma? No MRSA? Yes HIV? No TB? No Anxiety? Yes Depression? Yes Cancer? No Site: N More? No Immunization HX DT/Tetanus 1-4 Years Ago [employer] Hx LMP N/A Family History Family HX Diabetes Yes CAD No Hypertension No Hyperlipidemia No Cancer No TB No Social History Smoking Hx Smoker: Current Every Day Smoker Tobacco: Yes Type Cigarettes Packs/day < 1 Pack Alcohol Alcohol: No (COURTNEY DE LA CRUZ, YARELI Leos) Medical History Surgical Hx Previous Surgery?Y RT THUMB LEFT SHOULDER (Rehana VALDERRAMA,Marco) Review of Systems All Other Systems Reviewed and Negative Constitutional see HPI ENT see HPI, ear pain. (Marco Kimball MD) Physical Exam Vital Signs Vital Signs Date Time Temp Pulse Resp B/P Pulse O2 O2 Flow FiO2 Ox Delivery Rate 09/11 1247 98.9 78 20 125/62 94 09/11 1114 99.5 95 20 138/70 97 09/11 1044 20 09/11 1040 100.0 98 22 146/63 97 09/11 1016 99.2 101 22 119/94 96 09/11 0949 99.2 101 22 119/94 96 09/11 0937 99.2 101 22 119/94 96 - WBC >12,000 or <4,000 or 10% bands? 2 or more SIRS Criteria Met? B/P:119/94 MAP:102 Creatinine >2.0? UA output<0.5ml/kg/hr for 2 hrs? Platelet count >100,000? Lactate >2.0mmol/1? INR >1.2 or PTT > than 60 sec? Evidence of Organ Dysfunction? Provider documented clinical suspician of infection? Y Sepsis Criteria Count: 2 Sepsis Risk: Possible Sepsis Risk General Appearance normal appearance, moderate distress Eye Exam - bilateral eye normal exam Ear, Nose, Throat hearing grossly normal, normal ENT inspection, but complains of severe pain in the ear canal and behind the ear over the mastoid Respiratory Status No: respiratory distress. 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, normal exam (Marco Kimball MD) Medical Decision Making LABS/Meds/Orders Results/Orders Laboratory Tests 09/11/16 1040: Lactic Acid 0.7 09/11/16 1040: Sodium 135 L, Potassium 3.6, Chloride 101, Carbon Dioxide 25, BUN 9, Creatinine 0.6, Estimated Creat Clear 96, Estimated GFR (MDRD) 106, Glucose 135 H, Calcium 8.8, Total Bilirubin 0.6, AST 32, ALT 40, Alkaline Phosphatase 142 H, Total Protein 7.5, Albumin 3.3 L, Globulin 4.2 H, Albumin/Globulin Ratio 0.8 L, WBC 12.1 H, RBC 4.44, Hgb 13.9, Hct 41.3, MCV 93.0, RDW 12.2, Plt Count 183, MPV 6.7 L, Gran % 88.6 H, Gran # 10.7 H, Total Counted 100, Lymphocytes % 7.2 L, Monocytes % 3.5, Eosinophils % 0.6, Basophils % 0.1, Neutrophils 86 H, Band Neutrophils 2, Lymphocytes (Manual) 8 L, Lymphocytes # 0.9, Monocytes (Manual) 4, Monocytes # 0.4, Eosinophils # 0.1, Basophils # 0.0, Platelet Estimate NORMAL , PUBS MCHC 33.6, MCH 31.3 H 09/11/16 1002: Influenza Type A Ag NOT DETECTED, Influenza Type B Ag NOT DETECTED Current Medication Orders Sig/Britt Start time Last Medication Dose Route Stop Time Status Admin Ceftriaxone Sodium 1 GM ONCE ONE 09/11 1245 AC 09/11 Sodium Chloride 50 ML IV 09/11 1314 1245 Ceftriaxone Sodium 0 .STK-MED ONE 09/11 1243 DC IV Sodium Chloride 50 ML .STK-MED ONE 09/11 1243 DC IV Acetaminophen 1,000 MG ONCE ONE 09/11 1100 DC 09/11 PO 09/11 1101 1047 Acetaminophen 0 .STK-MED ONE 09/11 1048 DC PO Acetaminophen 0 .STK-MED ONE 09/11 1046 DC PO Sodium Chloride 1,000 ML .STK-MED ONE 09/11 1042 DC IV Ketorolac 0 .STK-MED ONE 09/11 1041 DC Tromethamine .ROUTE Ketorolac 30 MG ONCE ONE 09/11 1030 DC 09/11 Tromethamine IV 09/11 1031 1044 Sodium Chloride 10 ML PRN PRN 09/11 1030 AC IV 09/12 1026 Sodium Chloride 1,000 ML .Q4H 09/11 1030 AC 09/11 IV 09/11 1429 1045 Sodium Chloride 10 ML PRN PRN 09/11 1030 AC IV 09/12 1026 Orders Procedure Date/time Status DIET-NOTHING BY MOUTH 09/11 L Active DIFFERENTIAL-WBC 09/11 1040 Complete LACTIC ACID 09/11 1039 Complete CULTURE, BLOOD 09/[address] HEAD REQ 09/11 1027 Complete IV SALINE LOCK 09/11 1027 Active CULTURE, BLOOD 09/11 1027 Active CBC WITH AUTO DIFF 09/11 1027 Complete CHEM 12 PROFILE 09/11 1027 Complete UTC FLU A,B 09/11 1002 Complete LABS/Meds/Orders Pt receiving controlled substance in ED? No (Marco Kimball MD) Departure Departure Time of Disposition 1238 Disposition DC Home or Self Care(routine) Clinical Impression Primary Impression: Acute maxillary sinusitis Qualifiers: Recurrence: not specified as recurrent Qualified Code: J01.00 - Acute maxillary sinusitis, unspecified Secondary Impressions: Acute ethmoidal sinusitis Qualifiers: Recurrence: not specified as recurrent Qualified Code: J01.20 - Acute ethmoidal sinusitis, unspecified Condition STABLE Referrals Laurent VALDERRAMA,Heath Rosario (Family): 4 Days-Call Office Patient Instructions DI for Sinusitis, Sinusitis (Alternative Therapy) Additional Instructions Use medicines as directed and follow up with PCP in 3 to 4 days to evaluate further Discharge Counseling Counseled pt/family regarding diagnosis, test results, medications/RX, home care, follow up needs Prescriptions Current Visit Scripts Cephalexin (Keflex 500MG) 500 MG PO QID #40 CAP Guaifenesin (Mucinex) 600 MG PO BID #20 TAB BUTALB/ACETAMINOPHEN/CAFFEINE (Fioricet 50-300-40 MG Capsule) 1 CAP PO Q6HP PRN pain #30 CAP (Marco Kimball MD) at 1244 at 1248
[2016-09-11 10:53] LABS: HEMOGLOBIN 13.9 g/dL (12.2-16.2); LYMPH # 0.9 K/mm3 (0.7-4.5); LYMPH % 7.2 % (10-50.0)
[2016-09-11 11:28] LABS: NEUTROPHILS 86 % (42-76)
--- NOTE | 2016-09-11 12:35 | RADIOLOGY REPORT PS360 ---
CT HEAD W/O CONTRAST COMPARISON: None HISTORY: Left ear pain TECHNIQUE: Multiaxial scans obtained from base skull to the vertex and were performed without IV contrast. FINDINGS: There is marked mucoperiosteal thickening and/or fluid within the bilateral maxillary sinuses and almost totally occluding the ethmoid sinuses. The frontal sinuses are clear, there is minimal mucoperiosteal thickening of the sphenoid sinus. The basilar cisterns are normal and the ventricular system is normal. There is no ischemic infarct or bleed and there are no extra-axial fluid collections. There is no significant atrophy by calvarium appears intact. IMPRESSION: Findings of prominent bilateral maxillary and ethmoid sinusitis likely acute and chronic, otherwise negative noncontrast CT scan of brain
[2016-09-11] MEDS ORDERED: KEFLEX500 M1 PO (12:40)
[2016-09-11] MEDS ORDERED: MUCINEX ER600 MG PO (12:40)
[2016-09-11] MEDS ORDERED: FIORICET1 CAP PO (12:43)
--- NOTE | 2016-09-11 12:53 | Emergency Room Report ---
History of Present Illness Time Seen by [id number] Presenting Problem in Triage Pt arrived:Wheelchair Presenting Problem:PT REPORTS L EAR PAIN AND FEVER THAT BEGAN YESTERDAY Onset of symptoms date/time:09/10/16/ or onset unknown for:MEDICAL HX UNKNOWN Treatment Prior to Arrival: CHILD ADOLESCENT CARE Provided by: Sepsis Risk Assessment: Temp: 98.9 B/P: 125/62 MAP: 102 Pulse: 78 Resp: 20 Recent fever? Y Clinical Suspician of Infection? Y Mental Status: 1 - Regular (Normal Baseline) Sepsis Risk:Possible Sepsis Risk Have you (or family members/close friends) recently traveled outside the [place]? N If Yes, where/when: Have you had exposure to infectious disease within the past month? N TB? Other? Specify: Source patient, RN notes reviewed Exam Limitations no limitations Comment pt comes to the ED with severe pain in her left ear that started last night and does have a low grade fever. She has not had any vomiting or sore throat or cough Cardiac Chest Pain Chest pain indicative of cardiac No ALLERGIES Coded Allergies: No Known Allergies (11/23/15) Home Medications Reported Medications BUPROPION HCL (Bupropion HCl 75MG) 75 MG PO DAILY #30 History Medical History General CAD? No Angina: No [place]: No Hypertension? No Hyperlipidemia? No CHF? No DVT? No PE? No COPD? No Asthma? No Anemia? No GERD? No Gastric ulcers? No GI Bleed? No Hernia? No Thyroid Problems? No Hypothyroidism? No CVA? No Seizures? No Diabetes? No Insulin Dependent: No Insulin Pump: No Home FSBS? No Renal Insuffiency? No End Stage Renal Disease? No UTI? No Stones? No BPH? No GB Disease: No Nephritic Syndrome? No Asplenia? No Hepatitis? No Sickle Cell Disease? No Arthritis? Yes Migraines? No Cataracts? No Glaucoma? No MRSA? Yes HIV? No TB? No Anxiety? Yes Depression? Yes Cancer? No More? 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 Physical Exam Vital Signs Vital Signs Date Time Temp Pulse Resp B/P Pulse O2 O2 Flow FiO2 Ox Delivery Rate 09/11 1247 98.9 78 20 125/62 94 09/11 1114 99.5 95 20 138/70 97 09/11 1044 20 09/11 1040 100.0 98 22 146/63 97 09/11 1016 99.2 101 22 119/94 96 09/11 0949 99.2 101 22 119/94 96 09/11 0937 99.2 101 22 119/94 96 General Appearance mild distress Ear, Nose, Throat normal ENT inspection Respiratory Status No: respiratory distress. Lung Sounds bilateral: normal breath sounds. 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 Yes Narayan was queried for this patient? Yes Reference #: [id number] Risks/benefits of using a controlled substance for treatment were not discussed w/pt Results/Orders Laboratory Tests 09/11/16 1040: Lactic Acid 0.7 09/11/16 1040: Sodium 135 L, Potassium 3.6, Chloride 101, Carbon Dioxide 25, BUN 9, Creatinine 0.6, Estimated Creat Clear 96, Estimated GFR (MDRD) 106, Glucose 135 H, Calcium 8.8, Total Bilirubin 0.6, AST 32, ALT 40, Alkaline Phosphatase 142 H, Total Protein 7.5, Albumin 3.3 L, Globulin 4.2 H, Albumin/Globulin Ratio 0.8 L, WBC 12.1 H, RBC 4.44, Hgb 13.9, Hct 41.3, MCV 93.0, RDW 12.2, Plt Count 183, MPV 6.7 L, Gran % 88.6 H, Gran # 10.7 H, Total Counted 100, Lymphocytes % 7.2 L, Monocytes % 3.5, Eosinophils % 0.6, Basophils % 0.1, Neutrophils 86 H, Band Neutrophils 2, Lymphocytes (Manual) 8 L, Lymphocytes # 0.9, Monocytes (Manual) 4, Monocytes # 0.4, Eosinophils # 0.1, Basophils # 0.0, Platelet Estimate NORMAL , PUBS MCHC 33.6, MCH 31.3 H 09/11/16 1002: Influenza Type A Ag NOT DETECTED, Influenza Type B Ag NOT DETECTED Current Medication Orders Sig/Britt Start time Last Medication Dose Route Stop Time Status Admin Ceftriaxone Sodium 1 GM ONCE ONE 09/11 1245 AC 09/11 Sodium Chloride 50 ML IV 09/11 1314 1245 Ceftriaxone Sodium 0 .STK-MED ONE 09/11 1243 DC IV Sodium Chloride 50 ML .STK-MED ONE 09/11 1243 DC IV Acetaminophen 1,000 MG ONCE ONE 09/11 1100 DC 09/11 PO 09/11 1101 1047 Acetaminophen 0 .STK-MED ONE 09/11 1048 DC PO Acetaminophen 0 .STK-MED ONE 09/11 1046 DC PO Sodium Chloride 1,000 ML .STK-MED ONE 09/11 1042 DC IV Ketorolac 0 .STK-MED ONE 09/11 1041 DC Tromethamine .ROUTE Ketorolac 30 MG ONCE ONE 09/11 1030 DC 09/11 Tromethamine IV 09/11 1031 1044 Sodium Chloride 10 ML PRN PRN 09/11 1030 AC IV 09/12 1026 Sodium Chloride 1,000 ML .Q4H 09/11 1030 AC 09/11 IV 09/11 1429 1045 Sodium Chloride 10 ML PRN PRN 09/11 1030 AC IV 09/12 1026 Orders Procedure Date/time Status DIET-NOTHING BY MOUTH 09/11 L Active DIFFERENTIAL-WBC 09/11 1040 Complete LACTIC ACID 09/11 1039 Complete CULTURE, BLOOD 09/[address] HEAD REQ 09/11 1027 Complete IV SALINE LOCK 09/11 1027 Active CULTURE, BLOOD 09/11 1027 Active CBC WITH AUTO DIFF 09/11 1027 Complete CHEM 12 PROFILE 09/11 1027 Complete UTC FLU A,B 09/11 1002 Complete Departure Departure Time of Disposition 1253 Disposition DC Home or Self Care(routine) Clinical Impression Primary Impression: Acute maxillary sinusitis Qualifiers: Recurrence: not specified as recurrent Qualified Code: J01.00 - Acute maxillary sinusitis, unspecified Secondary Impressions: Acute ethmoidal sinusitis Qualifiers: Recurrence: not specified as recurrent Qualified Code: J01.20 - Acute ethmoidal sinusitis, unspecified Condition STABLE Referrals Laurent VALDERRAMA,Heath Rosario (Family) Additional Instructions Use medicines as directed and follow up with PCP in 3 to 4 days to evaluate further Prescriptions Current Visit Scripts Cephalexin (Keflex 500MG) 500 MG PO QID #40 CAP Guaifenesin (Mucinex) 600 MG PO BID #20 TAB BUTALB/ACETAMINOPHEN/CAFFEINE (Fioricet 50-300-40 MG Capsule) 1 CAP PO Q6HP PRN pain #30 CAP ED Critical Care Critical Care No at 1257
[2016-09-11 13:22] VITALS: BP 125/62
== END 2016-09-11 13:23 | disposition home or self-care (01) ==
LOC: ER 09:32 → UTC 09:32 → ER 09:44
PROVIDERS: General Practice
DX: J01.00 Acute maxillary sinusitis, unspecified (principal); J01.20 Acute ethmoidal sinusitis, unspecified

== ENCOUNTER 2017-02-21 10:12 | Emergency (ER) | payer MEDICAID ==
[~2017-02-21] VITALS: Ht 167.6 cm; Wt 59.0 kg
[~2017-02-21 10:12] MED LIST changes: +FIORICET1 CAP PO; +KEFLEX500 M1 PO; +MUCINEX ER600 MG PO
--- OUTSIDE RECORDS SUMMARY | 2017-02-21 10:38 | External Medical Summary Rpt | CCD ---
Author Author , JACQUI Organization JACQUI Address Unknown Phone [email or web address] Care Team Providers Care Commissioner Public Works Name Role Phone MICHAEL SOLOMON MD, PSC, Unavailable Unavailable MICHAEL SOLOMON MD, PSC TRISTIN GOULD BELL, Unavailable Unavailable DARRIAN RUSSO Unavailable Unavailable AMANDA ALL, AMANDA ALL Unavailable Unavailable TYSON CANDY COUNTER CLERK, TYSON Unavailable Unavailable CANDY COUNTER CLERK DYLLAN MOCK, Unavailable Unavailable [facility], Unavailable [facility]available [facility] JIMY EMRE, Unavailable Unavailable JIMY EMRE JR STEPHEN RICARDO, Unavailable Unavailable JR STEPHEN RICARDO BRANDON, LYRIC Unavailable Unavailable BRANDON [facility] Unavailable Unavailable INC, [facility], Unavailable Unavailable [facility] Unavailable Unavailable IMAGING [facility], [facility] Unavailable [facility]available [facility], Unavailable Unavailable PLLC, [facility] PETTEY JAM, PETTEY Unavailable Unavailable LISA NICOLAS, Unavailable Unavailable TAMANNA NICOLAS RENUSCH KEVIN, RENUSCH Unavailable Unavailable KEVIN [id number], Unavailable Unavailable [id number] Unavailable Unavailable EMER[facility]ENCY [facility], [facility], [facility] Unavailable Unavailable COM INC WEHRMAN III IVETH, Unavailable Unavailable WEHRMAN III IVETH Purpose Continuity of Care Document - 06-20-2007 through 2016 Problems Code Diagnosis DOS Provider Status H9202 OTALGIA 09-11-2016 [facility] J0100 ACUTE 09-11-2016 [facility] UNSPECIFIED J0120 ACUTE 09-11-2016 [facility]IS INC UNSPECIFIED [id number] INSECT BITE 11-23-2015 [facility] NONVENOMOUS PLLC RT HAND INITIAL ENC M1711 UNILATERAL 03-28-2015 [facility], [facility]STE[facility]THRI PLLC TIS RIGHT KNEE [id number] EFFUSION 03-28-2015 [facility] G66585 PAIN IN 03-28-2015 [facility] M170 BILATERAL 02-18-2015 [place] [facility] OSTEOARTHRI INC TIS OF KNEE 09889 OSTEOARTHRO 01-17-2015 RANJA[facility] CURRY UNSPEC , PSC WHETHER GEN/LOC LOWER LEG 33929 UNSPECIFIED 01-17-2015 [facility] ARTHROPATHY INC , LOWER LEG 38654 PAIN IN 12-16-2014 [place] [facility] LOWER LEG INC 6826 CELLULITIS 12-07-2014 [facility] AND ABSCESS PHYSICIANS, OF LEG PLLC EXCEPT FOOT 8940 MX&UNSPEC 12-07-2014 [facility] OPEN WOUND MEDICAL LOW LIMB IMAGING ASS W/O MENTION COMP 8799 OPEN WOUND 11-26-2014 [place] [facility] UNSPECIFIED INC SITE COMPLICATED 9597 INJURY 11-19-2014 [facility] OTHER&UNSPE PHYSICIANS, CIFIED KNEE PLLC LEG ANKLE&FOOT V7231 ROUTINE 11-04-2014 [facility] AL EXAMINATION V7641 SCREENING 11-04-2014 [facility] GROUP NEOPLASM OF THE RECTUM 7295 PAIN IN 09-07-2014 [facility] SOFT MEDICAL TISSUES OF IMAGING ASS LIMB V7612 OTHER 08-14-2014 [facility] SCREENING MEDICAL MAMMOGRAM [facility] ASS 91798 OVERWEIGHT 07-09-2014 [facility]OS[facility] INC 4739 UNSPECIFIED 05-17-2014 [facility] GROUP 06959 OLD 10-19-2013 [facility] DISRUPTION PHYSICIANS OF GROUP POSTERIOR CRUCIATE LIGAMENT 81580 CONTUSION 09-05-2013 [facility] 8449 SPRAIN&STRA 08-18-2013 [facility] N EMERGENCY UNSPECIFIED PHYSI SITE OF KNEE&LEG E8888 OTHER FALL 08-18-2013 [facility]GENC[facility] PHYSI E8889 UNSPECIFIED 08-18-2013 [facility] V251 ENCOUNTER 07-13-2007 [facility] [place] VE DEVICE [facility] V2509 OTH GENERAL 06-20-2007 [facility] CNSL&ADVICE [facility]IN[facility] CONTR[place]PT [place] MA[facility] V2549 SURVEILLANC 06-20-2007 WOMEN'S E OTH PREV HEALTH PRSC CLINIC OF CONTR[place]PT [place] METHOD [facility] Medications Na ND Rx Da Fi Fi Am Da Di Ph RX Ph St me C No te ll ll ou ys ag ar # ys at rm s nt no ma ic us Or Da si cy ia de te s n re d MU 63 07 08 40 20 00 CL Ac CI 82 -2 -2 .0 00 IN ti NE 40 8- 5- 00 00 IC ve X 00 20 20 43 ER 83 17 17 80 PH 4 48 AR 60 MA 0 CY MG TA BL ET BU 46 05 06 30 7 00 CL Ac TA 67 -1 -0 .0 00 IN ti LB 20 3- 2- 00 00 IC ve -A 05 20 20 43 CE 35 17 17 10 PH TA 0 21 AR IN MA N- CY CA FF 50 -3 25 -4 0 CE 69 05 06 40 10 00 CL Ac PH 54 -1 -0 .0 00 IN ti AL 30 3- 2- 00 00 IC ve EX 10 20 20 43 IN 25 17 17 10 PH 0 19 AR 50 MA 0 CY MG CA PS UL E MU 63 05 06 20 10 00 CL Ac CI 82 -1 -0 .0 00 IN ti NE 40 3- 2- 00 00 IC ve X 00 20 20 43 ER 83 17 17 10 PH 4 20 AR 60 MA 0 CY MG TA BL ET IN 50 02 04 00 1. 1 TH 20 No Ac RE 41 -2 -0 00 ER 27 t ti NA 90 9- 7- 0 A 85 Av ve 42 20 20 CO 9 ai SY [address] 1 IN bl EM C e 00 03 04 00 12 2 RI 72 No Ac 40 -0 -0 .0 TE 26 t ti 60 3- 7- 00 54 Av ve 35 20 20 AI ai 90 08 08 D la 1 PH bl AR e M #3 93 8 ME 59 02 03 00 1. 90 CL [address] 76 -1 -2 00 IN 51 t ti OX 24 9- 6- 0 IC 76 Av ve YP 53 20 20 ai RO 70 08 08 PH la GE [address] MA e ER CY ON E 15 0 MG /M L Procedures Procedure DOS Code Location Performer Comment BLOOD 06579 [facility] COMPLETE INC INC AUTO&[place] [address] [facility] INFUSION 7 [facility] THERAPY/P INC INC ROPHYLAXI S /DX 1ST TO 1 HR THERAPEUT 47570 [facility] IC [facility] INJECTION INC INC IV PUSH EACH NEW DRUG CULTURE 20920 [facility] BACTERIAL 7 [facility] BLOOD INC INC AEROBIC W/[place] [address] [facility] LACTATE 7 [facility] INC INC COMPREHEN 66198 [facility] SIVE [facility] METABOLIC INC INC PANEL IAADIADOO 36695 [facility] [place] [address] [facility] HEAD/BRAI 7 [facility] N W/O INC INC CONTRAST MATERIAL RADIOLOGI 86027 [place] AMANDA ALL C 5 MEDICAL EXAMINATI IMAGING ON KNEE 3 ASS VIEWS INJECTION J1030 [facility] 5 [facility] METHYLPRE INC INC DNISOLONE ACETATE 40 MG ARTHROCEN 02249 [facility] TESIS 5 [facility] ASPIR&/IN INC INC J MAJOR JT/BURSA W/O US FLUOR 38164 MICHAEL MICHAEL NEEDLE/CA 5 MD NEHA, MD NEHA, PSC PSC SPINE/PAR ASPINAL DX/THER ADDON RADIOLOGI 53043 [place] AMANDA ALL C 5 MEDICAL EXAMINATI IMAGING ON TIBIA ASS & FIBULA 2 VIEWS SUSCEPTIB 71412 [facility] LTY STDY 5 [facility] ANTIMICRB INC INC IAL MICRO/AGA R DILUTJ CUL BACT 41242 [facility] XCPT 5 [facility] URINE INC INC BLOOD/STO OL AEROBIC ISOL CUL BACT 59594 [facility] AEROBIC 5 [facility] ADDL INC INC METHS DEFINITIV E EA ISOL CYTP C/V 30097 [facility]ICK[facility] AUTO THIN 5 LLC ER JR FIDENCIO LYR PREPJ SCR MNL RESCR PHYS BLOOD 82918 [facility] OCCULT 5 PHYSICIAN BRANDON PEROXIDAS S GROUP E ACTV QUAL FECES 1-3 SPEC DUP-SCAN 39078 [facility] XTR VEINS 5 [facility] INC INC UNILATERA L/LIMITED STUDY [facility] [address] [facility] AIDED 5 [facility] DETECTION INC INC SCREENING MAMMOGRAP HY SCREENING G0202 [facility] GUEVARAON 5 [facility] MAMMOGRAP INC INC HY ALBER INCL CAD WHEN PERFORMD HEMOGLOBI 46627 [facility] GUEVARAON N 5 [facility] GLYCOSYLA INC INC RAJAN A1C SEDIMENTA 25868 [facility] TION RATE 5 [facility] RBC INC INC NON-AUTOM ATED CYANOCOBA 09614 [facility] KAT 5 [facility] VITAMIN INC INC B-12 GONADOTRO 73397 [facility] PIN 5 [facility] [place] [address] [facility] MAGNESIUM 5 [facility] INC INC GONADOTRO 80169 [facility] D[facility] PIN 5 [facility] FOLLICLE [place] [address] [facility] THYROXINE 5 [facility] TOTAL INC INC GENERAL 42575 [facility] HEALTH 5 [facility] PANEL INC INC RADIOLOGI 07470 PSYCHIATRIC EXAM 4 MEDICAL EMRE KNEE IMAGING COMPLETE ASS 4/MORE VIEWS INSERTION 79176 [facility] [place], 8 [facility] INTRAUTER CLINIC OF INE DEVICE [place] IUD [facility] URINE 24533 [facility] [place] 8 [facility] TEST CLINIC OF VISUAL COLOR [place] CMPRSN [facility] METHS URINE 91740 [facility] [place], 8 [facility] TEST CLINIC OF VISUAL [facility] [place] [facility] Encounters Encounter Start End Date Code Location Performer Type Date EMERGENCY 97510 [facility] DEPT 7 7 [facility] VISIT INC HIGH SEVERITY& THREAT [facility] - 7 7 [facility] OUTPATIEN INC T EMERGENCY 18636 YARITZA DE PAZ 6 6 PHYSICIAN KEVIN Palomo, [facility] T VISIT MODERATE SEVERITY EMERGENCY 75305 YARITZA RICARDO, 5 5 PHYSICIAN JR STEPHEN GUAMAN S [facility] T VISIT MODERATE SEVERITY OFFICE 23665 [facility] OUTPATIEN 5 5 [facility] T VISIT INC 10 MINUTES [facility] - [facility] OUTPATIEN INC [facility] OUTPATIEN INC [facility] - 5 5 [facility] OUTPATIEN INC OFFICE 35684 [facility] OUTPATIEN 5 5 [facility] T VISIT INC 10 MINUTES EMERGENCY 56856 Y[facility] MEHTA [address] [facility] T VISIT HIGH/URGE NT SEVERITY [facility]OSPITAL [facility] - 5 5 [facility] OUTPATIEN INC EMERGENCY 67487 YARITZA Venegas [address] [facility] T VISIT MODERATE SEVERITY PERIODIC 78869 [facility] PREVENTIV 5 5 PHYSICIAN BRANDON E MED EST S GROUP PATIENT 40-64YRS [facility]OSPITAL [facility] - 5 5 [facility] OUTPATIEN INC [facility] - 5 5 [facility] OUTPATIEN INC [facility] - 5 5 [facility] OUTPATIEN INC OFFICE 74384 [facility] OUTPATIEN 5 5 PHYSICIAN BRANDON T VISIT S GROUP [address]ES [address] [facility] OUTPATIEN 4 4 PHYSICIAN BRANDON T VISIT S GROUP [address] [facility] OUTPATIEN 4 4 PHYSICIAN BRANDON T VISIT S GROUP [address] [facility] PETTE[facility] OUTPATIEN 4 4 PHYSICIAN JAM T VISIT S GROUP [address] [facility] OUTPATIEN 4 4 PHYSICIAN BRANDON T VISIT S GROUP [address] [facility] PETTEY OUTPATIEN 4 4 PHYSICIAN JAM T VISIT S GROUP [address] [facility] OUTPATIEN 4 4 PHYSICIAN JAM T VISIT S GROUP [address]ES [address] [facility] OUTPATIEN 4 4 PHYSICIAN BRANDON T NEW 20 S GROUP MINUTES EMERGENCY 96492 [facility] 4 4 DOMINIQUE III [facility]GENC[facility] T VISIT PHYSI MODERATE SEVERITY OFFICE 53813 [facility] INGRID [facility] 8 8 HEALTH DYLLAN J T VISIT CLINIC OF 15 MINUTES HELENE MUOR
--- OUTSIDE RECORDS SUMMARY | 2017-02-21 10:38 | External Medical Summary Rpt | CCD ---
Author Author , JACQUI Organization JACQUI Address Unknown Phone [email or web address] Care Team Providers Care Child Advocate Name Role Phone MICHAEL SOLOMON MD, PSC, Unavailable Unavailable MICHAEL SOLOMON MD, PSC TRISTIN GOULD BELL, Unavailable Unavailable DARRIAN RUSSO Unavailable Unavailable AMANDA ALL, AMANDA ALL Unavailable Unavailable TYSON GARMENT PARTS CUTTER HAND, TYSON Unavailable Unavailable GARMENT PARTS CUTTER HAND DYLLAN MOCK, Unavailable Unavailable [facility], Unavailable Unavailable [facility] JIMY EMRE, Unavailable Unavailable JIMY EMRE JR STEPHEN RICARDO, Unavailable Unavailable JR STEPHEN RICARDO BRANDON, LYRIC Unavailable Unavailable BRANDON [facility] Unavailable Unavailable INC, [facility], Unavailable Unavailable [facility] Unavailable Unavailable IMAGING ASS, [facility] Unavailable Unavailable [facility], Unavailable Unavailable PLLC, [facility] PETTEY JAM, PETTEY Unavailable Unavailable LISA NICOLAS, Unavailable Unavailable TAMANNA NICOLAS RENUSCH KEVIN, RENUSCH Unavailable Unavailable KEVIN [id number], Unavailable Unavailable [facility] Unavailable Unavailable EMERGENCY PHYSI, [facility], THERA Unavailable Unavailable COM INC WEHRMAN III IVETH, Unavailable Unavailable WEHRMAN III IVETH Purpose Continuity of Care Document - 06-20-2007 through 2016 Problems Code Diagnosis DOS Provider Status H9202 OTALGIA 09-11-2016 [facility] [facility] J0100 ACUTE 09-11-2016 [facility]IS INC UNSPECIFIED J0120 ACUTE 09-11-2016 [facility]IS INC UNSPECIFIED [id number] INSECT BITE 11-23-2015 [facility], NONVENOMOUS PLLC RT HAND INITIAL ENC M1711 UNILATERAL 03-28-2015 [facility] PRIMARY [facility], OSTEOARTHRI PLLC TIS RIGHT KNEE L59669 EFFUSION 03-28-2015 [place] [facility] T05173 PAIN IN 03-28-2015 [place] [facility] M170 BILATERAL 02-18-[address] [place] [address] [facility] OSTEOARTHRI INC TIS OF KNEE 97996 OSTEOARTHRO 01-17-2015 RANJA[facility] CURRY UNSPEC , PSC WHETHER GEN/LOC LOWER LEG 21052 UNSPECIFIED 01-17-2015 [facility] ARTHROPATHY INC , LOWER LEG 02563 PAIN IN 12-16-2014 [place] [facility], [facility] LOWER LEG INC 6826 CELLULITIS 12-07-2014 [facility] AND ABSCESS PHYSICIANS, OF LEG PLLC EXCEPT FOOT 8940 MX&UNSPEC 12-07-2014 [place] OPEN WOUND MEDICAL LOW LIMB IMAGING ASS W/O MENTION COMP 8799 OPEN WOUND 11-26-[address] [place] [address] [facility] UNSPECIFIED INC SITE COMPLICATED 9597 INJURY 11-19-2014 [facility] OTHER&UNSPE PHYSICIANS, CIFIED KNEE PLLC LEG ANKLE&FOOT V7231 ROUTINE 11-04-2014 [facility] AL EXAMINATION V7641 SCREENING 11-04-[address] [facility] MALIGNANT GROUP NEOPLASM OF THE RECTUM 7295 PAIN IN 09-07-2014 [place] SOFT MEDICAL TISSUES OF IMAGING ASS LIMB V7612 OTHER 08-14-2014 [place] SCREENING MEDICAL MAMMOGRAM IMAGING ASS 68461 OVERWEIGHT 07-09-2014 [facility] HOSP INC 4739 UNSPECIFIED 05-17-[address] [facility] SINUSITIS PHYSICIANS GROUP 29476 OLD 10-19-[address] [facility] DISRUPTION PHYSICIANS OF GROUP POSTERIOR CRUCIATE LIGAMENT 53923 CONTUSION 09-05-[address] [address] [facility] OF KNEE PHYSICIANS GROUP 8449 SPRAIN&STRA 08-18-2013 [facility] N EMERGENCY UNSPECIFIED PHYSI SITE OF KNEE&LEG E8888 OTHER FALL 08-18-2013 [facility] EM[facility]GENCY PHYSI E8889 UNSPECIFIED 08-18-2013 [place] [facility] V251 ENCOUNTER 07-13-2007 [facility] INSERT/[facility] [place] VE DEVICE [facility] V2509 OTH GENERAL 06-20-2007 [facility] CNSL&ADVICE CLINIC OF CONTR[facility]PT [place] MANAGEMENT [facility] V2549 SURVEILLANC 06-20-2007 WOMEN'S E OTH PREV HEALTH PRSC CLINIC OF CONTR[facility]PT [place] METHOD [facility] Medications Na ND Rx Da Fi Fi [...] 17 10 PH TA 0 21 AR OK MA N- CY CA FF 50 -3 [...] MA 0 CY MG TA BL ET OK 50 02 04 00 1. 1 TH [...] Procedure DOS Code Location Performer Comment BLOOD 02159 [facility] COMPLETE INC INC AUTO&[place] [address] [facility] INFUSION 7 [facility] THERAPY/P INC INC ROPHYLAXI S /DX 1ST TO 1 HR THERAPEUT 52777 [facility] IC 7 [facility] INJECTION INC INC IV PUSH EACH NEW DRUG CULTURE 41596 [facility] BACTERIAL [address] [facility] BLOOD INC INC AEROBIC W/[place] [address] [facility] LACTATE 7 [facility] INC INC COMPREHEN 17288 [facility] SIVE 7 [facility] METABOLIC INC INC PANEL IAADIADOO 57971 [facility] [place] [address] [facility] HEAD/BRAI [address] [facility] N W/O INC INC CONTRAST MATERIAL RADIOLOGI 63426 [place] AMANDA ALL C 5 MEDICAL EXAMINATI IMAGING ON KNEE 3 ASS VIEWS INJECTION J1030 [facility] [address] [facility] METHYLPRE INC INC DNISOLONE ACETATE 40 MG ARTHROCEN 33089 [facility] TESIS [address] [facility] ASPIR&/IN INC INC J MAJOR JT/BURSA W/O US FLUOR 63160 MICHAEL MICHAEL NEEDLE/CA 5 MD NEHA, MD NEHA, PSC PSC SPINE/PAR ASPINAL DX/THER ADDON RADIOLOGI 16198 [place] AMANDA ALL C 5 MEDICAL EXAMINATI IMAGING ON TIBIA ASS & FIBULA 2 VIEWS SUSCEPTIB 69450 [facility] LTY STDY [address] [facility] ANTIMICRB INC INC IAL MICRO/AGA R DILUTJ CUL BACT 03733 [facility] XCPT [address] [facility] URINE INC INC BLOOD/STO OL AEROBIC ISOL CUL BACT 53034 [facility] AEROBIC 5 [facility] ADDL INC INC METHS DEFINITIV E EA ISOL CYTP C/V 09278 [facility], PICKLESIM AUTO THIN 5 LLC ER JR FIDENCIO LYR PREPJ SCR MNL RESCR PHYS BLOOD [address] [facility] LYRIC OCCULT 5 PHYSICIAN BRANDON PEROXIDAS S GROUP E ACTV QUAL FECES 1-3 SPEC DUP-SCAN 39962 [facility] XTR VEINS 5 [facility] INC INC UNILATERA L/LIMITED STUDY [facility] 43523 [facility] AIDED 5 [facility] DETECTION INC INC SCREENING MAMMOGRAP HY SCREENING G0202 [facility] GUEVARAON 5 [facility] MAMMOGRAP INC INC HY ALBER INCL CAD WHEN PERFORMD HEMOGLOBI 73169 [facility] GUE[facility]AON N 5 [facility] GLYCOSYLA INC INC RAJAN A1C SEDIMENTA 24514 [facility] TION RATE 5 [facility] RBC INC INC NON-AUTOM ATED CYANOCOBA 35823 [facility] KAT 5 [facility] VITAMIN INC INC B-12 GONADOTRO 74125 [facility] PIN 5 [facility] LUTEINIZ[place] [address] [facility] MAGNESIUM 5 [facility] INC INC GONADOTRO 85575 [facility] PIN 5 [facility] FOLLICLE INC [place] [address] [facility] THYROXINE 5 [facility] TOTAL INC INC GENERAL 95032 [facility] HEALTH 5 [facility] PANEL INC INC RADIOLOGI 39379 [facility] EXAM 4 MEDICAL EMRE KNEE IMAGING COMPLETE ASS 4/MORE VIEWS INSERTION 70798 [facility] [place] 8 [facility] INTRAUTER CLINIC OF INE DEVICE [place] IUD [facility] URINE 10598 [facility] [place] 8 [facility] TEST CLINIC OF VISUAL [place] CMPRSN [facility] METHS URINE 97423 [facility] [place], 8 [facility] TEST CLINIC OF VISUAL [place] [facility]SN [facility] MET[facility] Encounters Encounter Start End Date Code Location Performer Type Date EMERGENCY 23810 [facility] DEPT 7 7 [facility] VISIT INC HIGH SEVERITY& THREAT [facility] - 7 7 [facility] OUTPATIEN INC T EMERGENCY 57526 YARITZA DE PAZ 6 6 PHYSICIAN KEVIN Palomo, [facility] T VISIT MODERATE SEVERITY EMERGENCY 69958 YARITZA RICARDO, 5 5 PHYSICIAN JR STEPHEN GUAMAN S [facility] T VISIT MODERATE SEVERITY OFFICE 98909 [facility] OUTPATIEN 5 5 [facility] T VISIT INC 10 MINUTES [facility]PAT[facility]EN INC [facility] OUTPAT[facility]EN [facility] - 5 5 [facility] OUTPATIEN INC OFFICE 47641 [facility]IEN 5 5 [facility] T VISIT INC 10 MINUTES EMERGENCY 04564 YARITZA MEHTA 5 5 PHYSICIAN LEATHA Palomo [facility] T VISIT HIGH/URGE NT SEVERITY [facility]OSPITAL [facility] - 5 5 [facility] OUTPATIEN INC EMERGENCY 79638 YARITZA Venegas 5 5 PHYSICIAN DENIZ Palomo [facility] T VISIT MODERATE SEVERITY PERIODIC [address] [facility] LYRIC PREVENTIV 5 5 PHYSICIAN BRANDON E MED EST S GROUP PATIENT 40-64YRS [facility]OSPITAL [facility] - 5 5 [facility] OUTPATIEN INC [facility] - 5 5 [facility] OUTPATIEN INC [facility] - 5 5 [facility] OUTPATIEN INC OFFICE [address] [facility] LYRIC OUTPATIEN 5 5 PHYSICIAN BRANDON T VISIT S GROUP 15 MINUTES OFFICE [address] [facility] LYRIC OUTPATIEN 4 4 PHYSICIAN BRANDON T VISIT S GROUP 10 MINUTES OFFICE [address] [facility] LYRIC OUTPATIEN 4 4 PHYSICIAN BRANDON T VISIT S GROUP 10 MINUTES OFFICE [address] [facility] PETTEY OUTPATIEN 4 4 PHYSICIAN JAM T VISIT S GROUP 15 MINUTES OFFICE [id number] [facility] OUTPATIEN 4 4 PHYSICIAN BRANDON T VISIT S GROUP 10 MINUTES OFFICE [id number] [facility] OUTPATIEN 4 4 PHYSICIAN JAM T VISIT S GROUP 15 MINUTES OFFICE [id number] [facility] OUTPATIEN 4 4 PHYSICIAN JAM T VISIT S GROUP 25 MINUTES OFFICE [address] [facility] OUTPATIEN 4 4 PHYSICIAN BRANDON T NEW 20 S GROUP MINUTES EMERGENCY [id number] [facility] 4 4 [facility] III [facility] EMERGENC[facility] T VISIT PHYSI MODERATE SEVERITY OFFICE [id number] [facility] 8 8 [facility] J T VISIT CLINIC OF 15 MINUTES HELENE MURO
--- OUTSIDE RECORDS SUMMARY | 2017-02-21 10:39 | External Medical Summary Rpt | CCD ---
Author Author , JACQUI OSMAN Address Unknown Phone [email or web address] Care Team Providers Care Speech Language Pathologist Travel Name Role Phone MICHAEL SOLOMON MD, PSC, Unavailable Unavailable MICHAEL SOLOMON MD, PSC JEREMÍAS VERONICA Unavailable Unavailable BEELLIS IBARRA BECORALKE Unavailable Unavailable FRED GOULD, TRISTIN C, GOULD, Unavailable Unavailable TRISTIN C DARRIAN L, DARRIAN L Unavailable Unavailable AMANDA ALL, AMANDA ALL Unavailable Unavailable TYSON LEATHA, TYSON Unavailable Unavailable DYLLAN NORMAN, Unavailable Unavailable [facility], Unavailable Unavailable [facility] JIMY ERME, Unavailable Unavailable JIMY EMRE JR STEPHEN RICARDO, Unavailable Unavailable JR STEPHEN RICARDO BRANDON, LYRIC Unavailable Unavailable BRANDON [facility] Unavailable Unavailable INC, [facility], Unavailable Unavailable [facility] Unavailable Unavailable IMAGING ASS, [facility] Unavailable [facility]available [facility], Unavailable Unavailable PLLC, [facility] PETTEY JAM, PETTEY Unavailable Unavailable JAM [facility], Unavailable Unavailable [facility] RENUSCH KEVIN, RENUSCH Unavailable Unavailable KEVIN [id number], Unavailable Unavailable [id number] Unavailable Unavailable [facility], [facility], THERA Unavailable Unavailable COM INC WEHRMAN III IVETH, Unavailable Unavailable WEHRMAN III IVETH Purpose Continuity of Care Document - 06-20-2007 through 2016 Problems Code Diagnosis DOS Provider Status H9202 OTALGIA 09-11-2016 [facility] J0100 ACUTE 09-11-2016 [facility] UNSPECIFIED J0120 ACUTE 09-11-2016 [facility] UNSPECIFIED [id number] INSECT BITE 11-23-2015 [facility], NONVENOMOUS PLLC RT HAND INITIAL ENC M1711 UNILATERAL 03-28-2015 [facility] PRIMARY [facility], OSTEOARTHRI PLLC TIS RIGHT KNEE O43417 EFFUSION 03-28-2015 [place] K42405 PAIN IN 03-28-2015 [place] [facility] M170 BILATERAL 02-18-2015 [place] [facility] OSTEOARTHRI INC TIS OF KNEE 40221 OSTEOARTHRO 01-17-2015 MICHAEL SOLOMON, SIS UNSPEC , PSC WHETHER GEN/LOC LOWER LEG 61308 UNSPECIFIED 01-17-2015 [facility] ARTHROPATHY INC , LOWER LEG 94945 PAIN IN 12-16-2014 [place] JOINT, [facility] LOWER LEG INC 6826 CELLULITIS 12-07-2014 [facility] AND ABSCESS PHYSICIANS, OF LEG PLLC EXCEPT FOOT 8940 MX&UNSPEC 12-07-2014 [place] OPEN WOUND MEDICAL LOW LIMB IMAGING ASS W/O MENTION COMP 8799 OPEN WOUND 11-26-2014 [facility] UNSPECIFIED INC SITE COMPLICATED 9597 INJURY 11-19-2014 [facility] OTHER&UNSPE PHYSICIANS, CIFIED KNEE PLLC LEG ANKLE&FOOT V7231 ROUTINE 11-04-2014 [facility] AL EXAMINATION V7641 SCREENING 11-04-2014 [facility] MALIGNANT GROUP NEOPLASM OF THE RECTUM 7295 PAIN IN 09-07-2014 [place] SOFT MEDICAL TISSUES OF IMAGING ASS LIMB V7612 OTHER 08-14-2014 [place] SCREENING MEDICAL MAMMOGRAM IMAGING ASS 46720 OVERWEIGHT 07-09-2014 [facility]OSP INC 4739 UNSPECIFIED 05-17-2014 [facility] SINUSITIS PHYSICIANS GROUP 64731 OLD 10-19-2013 [facility] DISRUPTION PHYSICIANS OF GROUP POSTERIOR CRUCIATE LIGAMENT 59876 CONTUSION 09-05-2013 [facility] OF KNEE PHYSICIANS GROUP 8449 SPRAIN&STRA 08-18-2013 [facility] N EMERGENCY UNSPECIFIED PHYSI SITE OF KNEE&LEG E8888 OTHER FALL 08-18-2013 [facility] PHYSI E8889 UNSPECIFIED 08-18-2013 [place] FALL [facility] V251 ENCOUNTER 07-13-2007 [facility] INSERT/[facility] IU [facility] OF [facility]PT[facility] [place] VE DEVICE [facility] V2509 OTH GENERAL 06-20-2007 [facility] CNSL&ADVICE CLINIC OF CONTRACEPT [place] MANAGEMENT [facility] V2549 SURVEILLANC 06-20-2007 WOMEN'S E OTH PREV HEALTH PRSC CLINIC OF CONTRACEPT [place] METHOD PLLC Medications Na ND Rx Da Fi Fi [...] 17 10 PH TA 0 21 AR CA MA N- CY CA FF 50 -3 [...] MA 0 CY MG TA BL ET 00 03 04 00 12 2 RI 72 No Ac 40 -0 -0 .0 TE 26 t ti 60 3- 7- 00 54 Av ve 35 20 20 AI ai 90 08 08 D la 1 PH bl AR e M #3 93 8 CA 50 02 04 00 1. 1 TH [...] Procedures Procedure [place] [address] [facility] HEAD/BRAI 7 MEDICAL N W/O IMAGING CONTRAST ASS MATERIAL CULTURE 04699 [facility] BACTERIAL 7 [facility] BLOOD INC INC AEROBIC W/[place] [address] [facility] INFUSION 7 [facility] THERAPY/P INC INC ROPHYLAXI S /DX 1ST TO 1 HR THERAPEUT 01993 [facility] IC 7 [facility] INJECTION INC INC IV PUSH EACH NEW DRUG BLOOD 36630 [facility] COUNT 7 [facility] H[facility] COMPLETE INC INC AUTO&AUTO DIFRNTL WBC COMPREHEN 62526 [facility] SIVE 7 [facility] METABOLIC INC INC PANEL IAADIADOO 97435 [facility] 7 [facility] [place] [address] [facility] LACTATE 7 [facility] INC INC RADIOLOGI 58966 [facility] AMANDA ALL C 5 MEDICAL EXAMINATI IMAGING ON KNEE 3 ASS VIEWS INJECTION J1030 [facility] 5 [facility] METHYLPRE INC INC DNISOLONE ACETATE 40 MG ARTHROCEN 22675 [facility] TESIS 5 [facility] ASPIR&/IN INC INC J MAJOR JT/BURSA W/O US FLUOR 53525 MICHAEL MICHAEL NEEDLE/CA 5 MD NEHA, MD NEHA, PSC PSC SPINE/PAR ASPINAL DX/THER ADDON RADIOLOGI 20545 ALIRIO AMANDA ALL C 5 MEDICAL EXAMINATI IMAGING ON TIBIA ASS & FIBULA 2 VIEWS SUSCEPTIB 42074 [facility] LTY STDY 5 [facility] ANTIMICRB INC INC IAL MICRO/AGA R DILUTJ CUL BACT 72651 [facility] XCPT 5 MEM H[facility] URINE INC INC BLOOD/STO OL AEROBIC ISOL CUL BACT 04649 [facility] AEROBIC 5 [facility] H[facility] ADDL INC INC METHS DEFINITIV E EA ISOL CYTP C/V 55192 [facility] PICKLESIM AUTO THIN 5 LLC ER JR FIDENCIO LYR PREPJ SCR MNL RESCR PHYS BLOOD 44558 [facility] LYRIC OCCULT 5 PHYSICIAN BRANDON PEROXIDAS S GROUP E ACTV QUAL FECES 1-3 SPEC DUP-SCAN 75408 [facility] XTR VEINS 5 MEDICAL EMRE IMAGING UNILATERA ASS L/LIMITED STUDY COMPUTER- 08916 [place] JEREMÍAS AIDED 5 MEDICAL FRED DETECTION IMAGING ASS SCREENING MAMMOGRAP HY SCREENING G0202 [place] JOSE 5 MEDICAL FRED MAMMOGRAP IMAGING HY ALBER ASS INCL CAD WHEN PERFORMD GONADOTRO 38816 [facility] PIN 5 [facility] FOLLICLE [place] [address] [facility] THYROXINE 5 [facility] TOTAL INC INC SEDIMENTA 12879 [facility] TION RATE 5 [facility] H[facility]OS[facility] RBC INC INC NON-AUTOM ATED CYANOCOBA 56132 [facility] KAT 5 [facility] VITAMIN INC INC B-12 GONADOTRO 59974 [facility] PIN 5 [facility] [place] [address] [facility] D[facility] MAGNESIUM 5 [facility] INC INC GENERAL 90600 [facility] HEALTH 5 [facility] PANEL INC INC HEMOGLOBI 78389 [facility] N 5 [facility] MEM HOSP GLYCOSYLA INC INC RAJAN A1C RADIOLOGI 99958 [place] JIMY Rivera EXAM 4 MEDICAL EMRE KNEE IMAGING COMPLETE ASS 4/MORE VIEWS INSERTION 10808 [facility], 8 [facility] INTRAUTER CLINIC OF INE DEVICE [place] IUD [facility] URINE 93501 [facility] [place], 8 [facility] C TEST CLINIC OF VISUAL COLOR [place] CMPRSN [facility] METHS URINE 67716 [facility], 8 [facility] TEST CLINIC OF VISUAL COLOR [place] CMPRSN [facility] METHS Encounters Encounter Start End Date Code Location Performer Type Date HOSPITAL [facility] - 7 7 [facility] OUTPATIEN INC T EMERGENCY 67739 [facility] DEPT 7 7 [facility] VISIT INC HIGH SEVERITY& THREAT FUNCJ EMERGENCY 57408 [facility] DE PAZ 6 6 PHYSICIAN KEVIN Palomo [facility] T VISIT MODERATE SEVERITY EMERGENCY 20059 [facility] RICARDO, 5 5 PHYSICIAN [facility] S, [facility] T VISIT MODERATE SEVERITY OFFICE 48317 [facility] 5 5 [facility] T VISIT INC 10 MINUTES HOSPITAL [facility] - 5 5 [facility] OUTPATIEN INC T HOSPITAL [facility] - 5 5 [facility] OUTPATIEN INC T HOSPITAL [facility] - 5 5 [facility] OUTPATIEN INC T OFFICE 92819 [facility] 5 5 [facility] T VISIT INC 10 MINUTES EMERGENCY 73554 [facility] MEHTA 5 5 PHYSICIAN LE[facility] S, [facility] T VISIT HIGH/URGE NT SEVERITY HOSPITAL [facility] - 5 5 [facility] OUTPATIEN INC T EMERGENCY 86700 [facility] Venegas 5 5 PHYSICIAN DENIZ S, [facility] T VISIT MODERATE SEVERITY PERIODIC 18524 [facility] L[facility]IC PREVENTIV 5 5 PHYSICIAN BRANDON E MED EST S GROUP PATIENT 40-64YRS HOSPITAL [facility] - 5 5 [facility] OUTPATIEN INC T HOSPITAL [facility] - 5 5 [facility] OUTPATIEN INC T HOSPITAL [facility] - 5 5 [facility] OUTPATIEN INC T OFFICE 85212 [facility] LYRIC OUTPATIEN 5 5 PHYSICIAN BRANDON T VISIT S GROUP 15 MINUTES OFFICE 54939 [facility] OUTPATIEN 4 4 PHYSICIAN BRANDON T VISIT S GROUP 10 MINUTES OFFICE 21316 [facility] L[facility] OUTPATIEN 4 4 PHYSICIAN BRANDON T VISIT S GROUP 10 MINUTES OFFICE 73991 [facility] PETTEY OUTPATIEN 4 4 PHYSICIAN JAM T VISIT S GROUP 15 MINUTES OFFICE 16920 [facility] L[facility] OUTPATIEN 4 4 PHYSICIAN BRANDON T VISIT S GROUP 10 MINUTES OFFICE 71516 [facility] PETTEY OUTPATIEN 4 4 PHYSICIAN JAM T VISIT S GROUP 15 MINUTES OFFICE 24576 [facility] PETTEY OUTPATIEN 4 4 PHYSICIAN JAM T VISIT S GROUP 25 MINUTES OFFICE 47120 [facility] L[facility] OUTPATIEN 4 4 PHYSICIAN BRANDON T NEW 20 S GROUP MINUTES EMERGENCY 99712 [facility] 4 4 DOMINIQUE III [facility] EMERGENCY T VISIT PHYSI MODERATE SEVERITY OFFICE 80863 [facility] IN[facility] 8 8 HEALTH DYLLAN J T VISIT CLINIC OF 15 MINUTES HELENE [facility]
--- OUTSIDE RECORDS SUMMARY | 2017-02-21 10:39 | External Medical Summary Rpt | CCD ---
Author Author , JACQUI OSMAN Address Unknown Phone [email or web address] Care Team Providers Care Finishing Powder Press Operator Name Role Phone MICHAEL SOLOMON MD, [...] Unavailable Unavailable INC, [facility], Unavailable Unavailable [facility] Unavailable Unavailable IMAGING ASS, [facility] Unavailable [facility]available [facility], Unavailable Unavailable PLLC, [facility] PETTEY JAM, PETTEY Unavailable Unavailable JAM [facility], Unavailable Unavailable [facility] RENUSCH KEVIN, RENUSCH Unavailable Unavailable KEVIN [id number], Unavailable Unavailable [id number] BY [facility] Unavailable Unavailable EMERGENCY PH[facility], REPLACED BY [facility], THERA Unavailable Unavailable COM INC WEHRMAN III IVETH, Unavailable Unavailable WEHRMAN III IVETH Purpose Continuity of Care Document - 06-20-2007 through 2016 Problems Code Diagnosis DOS Provider Status H9202 OTALGIA 09-11-2016 [facility] J0100 ACUTE 09-11-2016 [facility] UNSPECIFIED J0120 ACUTE 09-11-2016 [facility]IS INC UNSPECIFIED [id number] INSECT BITE 11-23-2015 [facility], NONVENOMOUS PLLC RT HAND INITIAL ENC M1711 UNILATERAL 03-28-2015 [facility], OSTEOARTHRI PLLC TIS RIGHT KNEE U24505 EFFUSION 03-28-2015 [place] [facility] L39577 PAIN IN 03-28-2015 [place] [facility] M170 BILATERAL 02-18-2015 [facility] [facility] OSTEOARTHRI INC TIS OF KNEE 51597 OSTEOARTHRO 01-17-2015 MICHAEL SOLOMON, SIS UNSPEC , PSC WHETHER GEN/LOC LOWER LEG 96538 UNSPECIFIED 01-17-2015 [facility] ARTHROPATHY INC , LOWER LEG 05886 PAIN IN 12-16-2014 [place] JOINT, [facility] LOWER LEG INC 6826 CELLULITIS 12-07-2014 [facility] AND ABSCESS PHYSICIANS, OF LEG PLLC EXCEPT FOOT 8940 MX&UNSPEC 12-07-2014 [place] OPEN WOUND MEDICAL LOW LIMB IMAGING ASS W/O MENTION COMP 8799 OPEN WOUND 11-26-2014 [facility] UNSPECIFIED INC SITE COMPLICATED 9597 INJURY 11-19-2014 [facility] OTHER&UNSPE PHYSICIANS, CIFIED KNEE PLLC LEG ANKLE&FOOT V7231 ROUTINE 11-04-2014 [facility] AL EXAMINATION V7641 SCREENING 11-04-2014 [facility] MALIGNANT GROUP NEOPLASM OF THE RECTUM 7295 PAIN IN 09-07-2014 [place] SOFT MEDICAL TISSUES OF IMAGING ASS LIMB V7612 OTHER 08-14-2014 [place] SCREENING MEDICAL MAMMOGRAM IMAGING ASS 80429 OVERWEIGHT 07-09-2014 [facility] INC 4739 UNSPECIFIED 05-17-2014 [facility] SINUSITIS PHYSICIANS GROUP 11719 OLD 10-19-2013 [facility] DISRUPTION PHYSICIANS OF GROUP POSTERIOR CRUCIATE LIGAMENT 81795 CONTUSION 09-05-2013 [facility] K[facility]EE PHYSICIANS GROUP 8449 SPRAIN&STRA 08-18-2013 [facility] EMERGENCY UNSPECIFIED PHYSI SITE OF KNEE&LEG E8888 OTHER FALL 08-18-2013 [facility] PH[facility]SI E8889 UNSPECIFIED 08-18-2013 [facility] V251 ENCOUNTER [...] 17 10 PH TA 0 21 AR WY MA N- CY CA FF 50 -3 [...] bl AR e M #3 93 8 W[place] 50 02 04 00 1. 1 TH [...] Procedure [place] [address] [facility] HEAD/BRAI 7 MEDICAL N W/O IMAGING CONTRAST ASS MATERIAL CULTURE 18869 [facility] BACTERIAL 7 [facility] BLOOD INC [place] AEROBIC W/[place] [address] [facility] INFUSION 7 [facility] THERAPY/P INC INC ROPHYLAXI S /DX 1ST TO 1 HR THERAPEUT 66362 [facility] IC 7 [facility] INJECTION INC INC IV PUSH EACH NEW DRUG BLOOD 30720 [facility] COUNT 7 [facility] H[facility] COMPLETE INC INC AUTO&AUTO DIFRNTL WBC COMPREHEN 49581 [facility] SIVE 7 [facility] METABOLIC INC INC PANEL IAADIADOO 81418 [facility] 7 [facility] [place] [address] [facility] LACTATE 7 [facility] INC INC RADIOLOGI 57407 [facility] AMANDA ALL C 5 MEDICAL EXAMINATI IMAGING ON KNEE 3 ASS VIEWS INJECTION J1030 [facility] 5 [facility] METHYLPRE INC INC DNISOLONE ACETATE 40 MG ARTHROCEN 10622 [facility] TESIS 5 [facility] ASPIR&/IN INC INC J MAJOR JT/BURSA W/O US FLUOR 83292 MICHAEL MICHAEL NEEDLE/CA 5 MD NEHA, MD NEHA, PSC PSC SPINE/PAR ASPINAL DX/THER ADDON RADIOLOGI 55004 ALIRIO AMANDA ALL C 5 MEDICAL EXAMINATI IMAGING ON TIBIA ASS & FIBULA 2 VIEWS SUSCEPTIB 90311 [facility] LTY STDY 5 [facility] ANTIMICRB INC INC IAL MICRO/AGA R DILUTJ CUL BACT 15491 [facility] XCPT 5 [facility] URINE INC INC BLOOD/STO OL AEROBIC ISOL CUL BACT 05921 [facility] AEROBIC 5 [facility] ADDL INC INC METHS DEFINITIV E EA ISOL CYTP C/V 89773 [facility]LES[facility] AUTO THIN 5 LLC ER JR FIDENCIO LYR PREPJ SCR MNL RESCR PHYS BLOOD 90590 [facility] L[facility] OCCULT 5 PHYSICIAN BRANDON PEROXIDAS S GROUP E ACTV QUAL FECES 1-3 SPEC DUP-SCAN 86160 [facility] X[facility] VEINS 5 MEDICAL EMRE IMAGING UNILATERA ASS L/LIMITED STUDY COMPUTER- 88108 [place] JEREMÍAS AIDED 5 MEDICAL FRED DETECTION IMAGING ASS SCREENING MAMMOGRAP HY SCREENING G0202 [place] JOSE 5 MEDICAL FRED MAMMOGRAP IMAGING HY ALBER ASS INCL CAD WHEN PERFORMD GONADOTRO 24429 [facility] PIN 5 [facility] FOLLICLE INC [place] [address] [facility] THYROXINE 5 [facility] TOTAL INC INC SEDIMENTA 22538 [facility] TION RATE 5 [facility] RBC INC INC NON-AUTOM ATED CYANOCOBA 22889 [facility] KAT 5 [facility] VITAMIN INC INC B-12 GONADOTRO 02052 [facility] PIN 5 [facility] [place] [address] [facility] D[facility] MAGNESIUM 5 [facility] INC INC GENERAL 04201 [facility] HEALTH 5 [facility] PANEL INC INC HEMOGLOBI 65316 [facility] D[facility] N 5 [facility]OS[facility] GLYCOSYLA INC INC RAJAN A1C RADIOLOGI 30137 [place] JIMY Rviera EXAM 4 MEDICAL EMRE KNEE IMAGING COMPLETE ASS 4/MORE VIEWS INSERTION 34478 [facility], 8 [facility] INTRAUTER CLINIC OF INE DEVICE [place] I[place] [facility] URINE 72010 [facility] [place], 8 [facility] C TEST CLINIC OF VISUAL [place] CMPRSN [facility] METHS URINE 46083 [facility] [place], 8 [facility] TEST CLINIC OF VISUAL COLOR [place] CMPRSN [facility] METHS Encounters Encounter Start End Date Code Location Performer Type Date HOSPITAL [facility] - 7 7 [facility] OUTPATIEN INC T EMERGENCY 39204 [facility] DEPT 7 7 [facility] VISIT INC HIGH SEVERITY& THREAT FUNCJ EMERGENCY 01226 Y[facility] DE PAZ 6 6 PHYSICIAN KEVIN Palomo [facility] T VISIT MODERATE SEVERITY EMERGENCY 13398 [facility] RICARDO, 5 5 PHYSICIAN JR MITCHELL [facility] S, [facility] T VISIT MODERATE SEVERITY OFFICE 38113 [facility] 5 5 [facility] T VISIT INC 10 MINUTES HOSPITAL [facility] - 5 5 [facility] OUTPATIEN INC T [facility]OSPITAL [facility] - 5 5 [facility] OUTPATIEN INC T HOSPITAL [facility] - 5 5 [facility] OUTPATIEN INC T OFFICE 21315 [facility] 5 5 [facility] T VISIT INC 10 MINUTES EMERGENCY 48534 YARITZA MEHTA 5 5 PHYSICIAN LEATHA [facility] S, [facility] T VISIT HIGH/URGE NT SEVERITY HOSPITAL [facility] - 5 5 [facility] OUTPATIEN INC T EMERGENCY 54498 YARITZA Venegas 5 5 PHYSICIAN DENIZ S, [facility] T VISIT MODERATE SEVERITY PERIODIC 03709 [facility] L[facility]IC PREVENTIV 5 5 PHYSICIAN BRANDON E MED EST S GROUP PATIENT 40-64YRS HOSPITAL [facility] - 5 5 [facility] OUTPATIEN INC T HOSPITAL [facility] - 5 5 [facility] OUTPATIEN INC T HOSPITAL [facility] - 5 5 [facility] OUTPATIEN INC T OFFICE 47453 [facility] OUTPATIEN 5 5 PHYSICIAN BRANDON T VISIT S GROUP 15 MINUTES OFFICE 86541 [facility] OUTPATIEN 4 4 PHYSICIAN BRANDON T VISIT S GROUP 10 MINUTES OFFICE 89065 [facility] OUTPATIEN 4 4 PHYSICIAN BRANDON T VISIT S GROUP 10 MINUTES OFFICE 39813 [facility] PETTEY OUTPATIEN 4 4 PHYSICIAN JAM T VISIT S GROUP 15 MINUTES OFFICE 80819 [facility] OUTPATIEN 4 4 PHYSICIAN BRANDON T VISIT S GROUP 10 MINUTES OFFICE 11457 [facility] PETTEY OUTPATIEN 4 4 PHYSICIAN JAM T VISIT S GROUP 15 MINUTES OFFICE 27284 [facility] PETTEY OUTPATIEN 4 4 PHYSICIAN JAM T VISIT S GROUP 25 MINUTES OFFICE 30989 [facility] OUTPATIEN 4 4 PHYSICIAN BRANDON T NEW 20 S GROUP MINUTES EMERGENCY 82380 [facility] 4 4 DOMINIQUE III [facility] EMERGENCY T VISIT PHYSI MODERATE SEVERITY OFFICE 76910 [facility] 8 8 HEALTH DYLLAN J T VISIT CLINIC OF 15 MINUTES HELENE [facility]
--- NOTE | 2017-02-21 10:40 | Urgent Treatment Center Report ---
History of Present Issue Date/Time Seen by Provider 02/21/17 1034 Visit Reason Pt arrived:Walked Presenting Problem:PT C/O RIGHT KNEE PAIN. ADVISES SHE WOKE UP THIS AM AND FELT PAIN, HURTS TO PUT WEIGHT ON IT. DENIES ANY KNOWN INJURY Location if Accident: Onset of symptoms date/time:/ or onset unknown for:MEDICAL HX UNKNOWN Have you (or family members/close friends) recently traveled outside the [place]? N If Yes, where/when: Have you had exposure to infectious disease within the past month? TB? Other? Specify: Patient states that she worked all day yesterday cleaning on her house and doing laundry State that she does not recall doing anything to cause injury to the knee however she has had problems with this knee before in which she seen Dr Hennessy State that around 4-5am this morning she woke up and was having pain in her right knee. State that pain is worsened when she tries to stand or bare weight on the that knee. Denies known injury ALLERGIES Coded Allergies: No Known Allergies (11/23/15) History Medical History General CAD? No Angina: No DE: No Hypertension? No Hyperlipidemia? No CHF? No DVT? No PE? No COPD? No Asthma? No Anemia? No GERD? No Gastric ulcers? No GI Bleed? No Hernia? No Thyroid Problems? No Hypothyroidism? No CVA? No Seizures? No Diabetes? No Insulin Dependent: No Insulin Pump: No Home FSBS? No Renal Insuffiency? No UTI? No Stones? No BPH? No GB Disease: No Nephritic Syndrome? No Asplenia? No Hepatitis? No Sickle Cell Disease? No Arthritis? Yes Migraines? No Cataracts? No Glaucoma? No MRSA? Yes HIV? No TB? No Anxiety? Yes Depression? Yes Cancer? No More? No Immunization HX DT/Tetanus 1-4 Years Ago Surgical Hx Previous Surgery?Y RT THUMB LEFT SHOULDER Family History Family HX Diabetes Yes CAD No Hypertension No Hyperlipidemia No Cancer No TB No Social History Smoking Hx Smoker: Current Some Day Smoker Tobacco: Yes Type Cigarettes Packs/day < 1 Pack Alcohol Alcohol: No Review of Systems All Other Systems Reviewed and Negative Comment Pain in right knee when she woke up this morning, denies known injury, denies recent falls, denies history of DVT, denies temperature difference in leg or pain in calf area Physical Exam Vital Signs Vital Signs Date Time Temp Pulse Resp B/P Pulse O2 O2 Flow FiO2 Ox Delivery Rate 02/21 1047 18 02/21 1021 98.2 74 16 146/71 98 02/21 1017 98.2 74 16 146/71 98 General Appearance normal appearance, WD/WN, no apparent distress Respiratory Status Yes: trachea midline, chest symmetrical, non tender chest. No: respiratory distress. Cardiovascular normal exam, regular rate/rhythm Extremities swelling, Pain and mild swelling in right knee area, no temp differences in legs, no redness no streaks good pedal and popiteal pulses noted Neurologic alert, normal exam, oriented x 3 Medical Decision Making LABS/Meds/Orders Pt receiving controlled substance in ED? No Results/Orders Current Medication Orders Sig/Britt Start time Last Medication Dose Route Stop Time Status Admin Ketorolac 60 MG ONCE ONE 02/21 1045 DC 02/21 Tromethamine IM 02/21 104 1047 Ketorolac 0 .STK-MED ONE 02/21 1041 DC Tromethamine .ROUTE Orders Procedure Date/time Status [facility] STABILIZE JOINT/AREA 02/21 1130 Active KNEE-3 VIEWS-RT 02/21 1030 Active XRAY/CT/US XRAY/CT/US XRAY knee XR interpretation by reviewed by me Xray Results no fracture seen, arthritic changes noted Comment Will have Radiologist do official read and record if any differences noted will call patient and explain Progress [facility] Progress Notes Date 02/21/17 Time 1100 Comment Requested that ER physician Dr Soares and Radiologist review xray Departure Departure Time of Disposition 1139 Disposition DC Home or Self Care(routine) Clinical Impression Primary Impression: Knee pain Qualifiers: Chronicity: unspecified Laterality: right Qualified Code: M25.561 - Pain in right knee Condition STABLE Referrals Laurent VALDERRAMA,Heath Rosario (PCP/Family): 2 Days-Call Office Diana VALDERRAMA,Danny YUSUF MD, NICOLE MYRICK Patient Instructions DI for Knee Pain Additional Instructions *If you did not take Penicillin shot or was unable to, start taking antibiotic immediately and make sure that you take it for the FULL length of time although you should start to feel better in 24-48 hours *change toothbrush and toothpaste 24-48 hours after starting to take antibiotics so you do not reinfect yourself Monitor Temp. Tylenol and/or Ibuprofen as needed. ER if fever is no less than 101 despite alternating Tylenol and Ibuprofen * Encourage fluids, water, Gatorade, powerade, pedialyte if infant/toddler/or child *Cold fluids, popsicles and ice cream may feel good on his throat Discharge Counseling Counseled pt/family regarding diagnosis, test results, medications/RX, home care, follow up needs Prescriptions Current Visit Scripts Ibuprofen (Ibuprofen 800MG) 800 MG PO QIDP PRN pain #30 TAB at 7166
--- OUTSIDE RECORDS SUMMARY | 2017-02-21 10:40 | External Medical Summary Rpt | CCD ---
Demographics Preferred Language Setswana Marital Status Unknown [employer] Affiliation Unknown Race Unknown Ethnic Group Unknown Author Author , JACQUI OSMAN Address Unknown Phone Immunization Unable to retrieve immunization data due to connection failure with Immunization Registry. Please try again later.
--- OUTSIDE RECORDS SUMMARY | 2017-02-21 10:40 | External Medical Summary Rpt | CCD ---
Demographics Preferred Language Divehi Marital Status Unknown Baptism Affiliation Unknown Race Unknown Ethnic Group Unknown Author Author , JACQUI OSMAN Address Unknown Phone Immunization Unable to retrieve immunization data due to connection failure with Immunization Registry. Please try again later.
[2017-02-21] MEDS ORDERED: IBUPROFEN800 MG PO (11:29)
[2017-02-21 11:39] VITALS: BP 146/71
--- NOTE | 2017-02-21 12:02 | RADIOLOGY REPORT PS360 ---
KNEE-3 VIEWS-RT HISTORY: PAIN IN RT KNEE STARTED TODAY, NOINJURY Patient Age: 51 years: Female Ordering Physician: TRISTIN MCKENZIE APRN TECHNIQUE: 3 views right knee COMPARISON :March 2015 FINDINGS Pronounced arthritic changes at the right knee with tricompartmental marginal osteophytes there is narrowing most evident at the lateral joint space on this nonweightbearing film. Patient also has faint chondrocalcinosis . Generous marginal osteophytes are seen superior to the patellofemoral joint. Is additional ossification I believe most likely lateral to the patella. A sunrise view to confirm this is related to the patella as suspected on this image set. No fracture. No joint effusion IMPRESSION: Degenerative changes at right knee with generous tricompartmental marginal osteophytes . Mild narrowing of the lateral compartment as well as patellofemoral joint reflecting degenerative changes at these joints.Minimal chondrocalcinosis medial and lateral compartment. Particularly prominent marginal osteophytes noted superior patellofemoral joint; with likely additional elongated ossification in soft tissues lateral to the patella of most likely. A sunrise view of patella may additionally confirm this additional calcification as lateral patella. Likely reflects old trauma No joint effusion Addendum. Previous study from March 2015 now available slight progression of similar marginal osteophytes and ossification lateral to patella pattern seen at that time,. Joint effusion seen previously not evident today
== END 2017-02-21 11:42 | disposition home or self-care (01) ==
LOC: ER 10:12 → UTC 10:27
PROC: 2W3LX1Z Immobilization of Right Lower Extremity using Splint (ICD-10-PCS; principal; 2017-02-21)
DX: M25.561 Pain in right knee (principal); F17.210 Nicotine dependence, cigarettes, uncomplicated